=== PATIENT | female | born 1980 | race Caucasian/White ===

== ENCOUNTER 2020-04-03 05:10 | Emergency (ER) | payer OTHER ==
[~2020-04-03] VITALS: Ht 154.9 cm; Wt 52.2 kg
[2020-04-03 06:08] LABS: BACTERIA TRACE; BILIRUBIN NEGATIVE (NEGATIVE); BLOOD NEGATIVE (NEGATIVE); CLARITY SL CLOUDY (CLEAR); COLOR YELLOW (YELLOW); GLUCOSE NEGATIVE (NEGATIVE); KETONE NEGATIVE (NEGATIVE); LEUKO ESTERASE NEGATIVE (NEGATIVE); NITRITE NEGATIVE (NEGATIVE); RBC 0-2 rbc/hpf (0-2); UROBILINOGEN 0.2 E.U./dl (0.2-1.0)
[2020-04-03 06:09] LABS: MUCOUS 1+
[2020-04-03 06:21] LABS: BASO # 0.1 10*3/uL (0.0-0.1); BASO % 0.7 % (0.0-1.0); EOS # 0.1 10*3/uL (0.0-0.4); HEMATOCRIT 39.5 % (37.0-47.0); LYMPH % 28.1 % (27.0-41.0); MEAN CELL VOLUME 86.8 fl (81.0-99.0); MEAN CORPUSCULAR HGB 26.2 pg (27.0-31.0); MEAN CORPUSCULAR HGB CONC 30.1 g/dl (33.0-37.0); MONO # 0.5 10*3/uL (0.1-1.0); MONO % 6.7 % (3.0-9.0); NEUT # 4.3 10*3/uL (2.3-7.9); NEUT % 62.2 % (47.0-73.0); PLATELET COUNT AUTOMATED 386 10*3/uL (130-400); RED BLOOD COUNT 4.55 10*6/uL (4.10-5.10); RED CELL DISTRI WIDTH 18.3 % (0-14.5)
[2020-04-03 06:35] LABS: ACT PARTIAL THROMBO TIME 28.1 SECONDS (20.0-32.1)
[2020-04-03 06:47] LABS: ALBUMIN 3.5 gm/dl (3.1-4.5); ALKALINE PHOSPHATASE 122 U/L (45-117); BUN 10 mg/dl (7-24); CHLORIDE 110 mmol/L (98-107); CREATININE 0.81 mg/dL (0.55-1.02); LIPASE 104 U/L (73-393); POTASSIUM 3.8 mmol/L (3.5-5.1); SGOT/AST 186 IU/L (3-35); SGPT/ALT 131 U/L (12-78); SODIUM 137 mmol/L (136-145); TOTAL PROTEIN 7.1 gm/dL (6.4-8.2)
== END 2020-04-03 08:57 | disposition home or self-care (01) ==
LOC: ED 05:10
PROVIDERS: Emergency Medicine Emergency Medical Services
DX: K50.90 Crohn's disease, unspecified, without complications (principal); Z88.5 Allergy status to narcotic agent; F17.200 Nicotine dependence, unspecified, uncomplicated; Z88.8 Allergy status to other drugs, medicaments and biological substances

== ENCOUNTER 2020-05-28 14:36 | Emergency (ER) | payer OTHER ==
[~2020-05-28] VITALS: Ht 154.9 cm; Wt 52.2 kg
[2020-05-28 15:47] LABS: BASO % 0.4 % (0.0-1.0); EOS # 0.1 10*3/uL (0.0-0.4); EOS % 0.9 % (1.0-4.0); HEMATOCRIT 38.9 % (37.0-47.0); LYMPH # 1.4 10*3/uL (1.3-4.4); LYMPH % 14.8 % (27.0-41.0); MEAN CELL VOLUME 88.6 fl (81.0-99.0); MEAN CORPUSCULAR HGB 27.3 pg (27.0-31.0); MEAN CORPUSCULAR HGB CONC 30.8 g/dl (33.0-37.0); MEAN PLATELET VOLUME 8.5 fl (9.6-12.3); MONO # 0.7 10*3/uL (0.1-1.0); MONO % 7.4 % (3.0-9.0); NEUT # 7.2 10*3/uL (2.3-7.9); NEUT % 76.2 % (47.0-73.0); PLATELET COUNT AUTOMATED 603 10*3/uL (130-400); RED BLOOD COUNT 4.39 10*6/uL (4.10-5.10); RED CELL DISTRI WIDTH 13.6 % (0-14.5); WHITE BLOOD COUNT 9.4 10*3/uL (4.8-10.8)
[2020-05-28 16:04] LABS: ALBUMIN 3.2 gm/dl (3.1-4.5); ALKALINE PHOSPHATASE 113 U/L (45-117); BUN 13 mg/dl (7-24); CHLORIDE 103 mmol/L (98-107); CREATININE 0.71 mg/dL (0.55-1.02); LIPASE 354 U/L (73-393); POTASSIUM 4.4 mmol/L (3.5-5.1); SGOT/AST 16 IU/L (3-35); SGPT/ALT 23 U/L (12-78); SODIUM 134 mmol/L (136-145); TOTAL PROTEIN 7.9 gm/dL (6.4-8.2)
[2020-05-28 18:14] LABS: BILIRUBIN NEGATIVE (NEGATIVE); BLOOD NEGATIVE (NEGATIVE); CLARITY CLEAR (CLEAR); COLOR YELLOW (YELLOW); GLUCOSE NEGATIVE (NEGATIVE); KETONE NEGATIVE (NEGATIVE); LEUKO ESTERASE NEGATIVE (NEGATIVE); NITRITE NEGATIVE (NEGATIVE); PH 6.5 (5.0-9.0); SPECIFIC GRAVITY 1.015 (1.005-1.030); UROBILINOGEN 0.2 E.U./dl (0.2-1.0)
[2020-05-28 18:18] LABS: WBC 0-2 wbc/hpf (0-5)
[2020-05-28] MEDS ORDERED: PERCOCET 5-3251 EACH PO (20:49)
[2020-05-28] MEDS ORDERED: ZOFRAN4 MG PO (20:49)
[2020-05-28] MEDS ORDERED: AUGMENTIN 875-875 MG PO (20:49)
[2020-05-28] MEDS ORDERED: PREDNISONE50 MG PO (20:51)
== END 2020-05-28 21:37 | disposition home or self-care (01) ==
LOC: ED 14:36
PROVIDERS: Physician Assistant
DX: R10.84 Generalized abdominal pain (principal); R50.9 Fever, unspecified; G43.909 Migraine, unspecified, not intractable, without status migrainosus; M81.0 Age-related osteoporosis without current pathological fracture; Z86.718 Personal history of other venous thrombosis and embolism; Z88.8 Allergy status to other drugs, medicaments and biological substances; Z88.6 Allergy status to analgesic agent

== ENCOUNTER 2020-06-13 15:54 | Observation (INO) | payer OTHER ==
[~2020-06-13] VITALS: Ht 154.9 cm; Wt 52.7 kg
[~2020-06-13 15:54] MED LIST: AUGMENTIN 875-875 MG PO; PERCOCET 5-3251 EACH PO; PREDNISONE50 MG PO; ZOFRAN4 MG PO
[2020-06-13 16:01] VITALS: BP 131/108
[2020-06-13 17:07] LABS: BASO % 0.8 % (0.0-1.0); EOS % 0.6 % (1.0-4.0); HEMATOCRIT 33.7 % (37.0-47.0); LYMPH # 1.3 10*3/uL (1.3-4.4); LYMPH % 26.7 % (27.0-41.0); MEAN CELL VOLUME 85.5 fl (81.0-99.0); MEAN CORPUSCULAR HGB 26.9 pg (27.0-31.0); MEAN CORPUSCULAR HGB CONC 31.5 g/dl (33.0-37.0); MEAN PLATELET VOLUME 8.9 fl (9.6-12.3); MONO # 0.6 10*3/uL (0.1-1.0); MONO % 11.5 % (3.0-9.0); NEUT # 2.9 10*3/uL (2.3-7.9); NEUT % 60.2 % (47.0-73.0); PLATELET COUNT AUTOMATED 338 10*3/uL (130-400); RED BLOOD COUNT 3.94 10*6/uL (4.10-5.10); RED CELL DISTRI WIDTH 13.3 % (0-14.5); WHITE BLOOD COUNT 4.9 10*3/uL (4.8-10.8)
[2020-06-13 17:21] LABS: ALBUMIN 2.8 gm/dl (3.1-4.5); ALKALINE PHOSPHATASE 86 U/L (45-117); BUN 6 mg/dl (7-24); CHLORIDE 107 mmol/L (98-107); CREATININE 0.75 mg/dL (0.55-1.02); LIPASE 137 U/L (73-393); SGOT/AST 8 IU/L (3-35); SGPT/ALT 13 U/L (12-78); SODIUM 139 mmol/L (136-145); TOTAL PROTEIN 6.7 gm/dL (6.4-8.2)
--- NOTE | 2020-06-13 17:47 | NUR ---
PT STATES SHE STILL HAS A LOT OF PAIN AND IS STILL NAUSEOUS. Boris VILLASEÑOR NOTIFIED
[2020-06-13 18:23] LABS: BILIRUBIN NEGATIVE; BLOOD NEGATIVE (NEGATIVE); CLARITY CLEAR (CLEAR); COLOR YELLOW (YELLOW); GLUCOSE NEGATIVE; KETONE NEGATIVE; LEUKO ESTERASE NEGATIVE (NEGATIVE); NITRITE NEGATIVE (NEGATIVE); PH 5.5 (4.5-8.0); SPECIFIC GRAVITY 1.005 (1.001-1.030); UROBILINOGEN 0.2 E.U./dl (0.0-1.0)
[2020-06-13 18:30] LABS: URINE AMPHETAMINES < 1000 (1000ng/ml); URINE BARBITURATES < 200 (200ng/ml); URINE BENZODIAZEPINES < 200 (200ng/ml); URINE CANNABINOIDS (THC) < 50 (50ng/ml); URINE COCAINE < 300 (300ng/ml); URINE METHADONE < 300 (300ng/ml); URINE OPIATES > 300 (300ng/ml)
[2020-06-13 18:31] LABS: BACTERIA 2+; RBC 0-2 rbc/hpf (0-2); URINE PHENCYCLIDINE < 25 (25ng/ml); WBC 0-2 wbc/hpf (0-5)
--- NOTE | 2020-06-13 20:00 | NUR ---
PT GIVEN SMALL CUP OF ICE CHIPS.
--- NOTE | 2020-06-13 20:39 | NUR ---
Boris VILLASEÑOR IN TO SEE PT AT THIS TIME.
[2020-06-13 22:05] VITALS: BP 101/69
[2020-06-13 22:06] VITALS: BP 94/70
--- NOTE | 2020-06-13 22:13 | NUR ---
PT RESTING IN BED. CALL LIGHT WITHIN REACH
--- NOTE | 2020-06-13 22:45 | NUR ---
PT STATES HER USUAL BP IS AROUND 90/60. STATES SHE ALWAYS RUNS LOW
[2020-06-13 22:46] VITALS: BP 105/50
[2020-06-13 22:57] VITALS: BP 107/62
--- NOTE | 2020-06-13 22:57 | NUR ---
Time: 2256 A 40 year old FEMALE admitted to 4E under services of SAMEERA STEPHEN DO. Pt. arrived via stretcher from ER. Chief complaint: ABD PAIN. [place] [facility]
[2020-06-13] MEDS ORDERED: AZASAN100 MG PO (23:04)
[2020-06-13] MEDS ORDERED: DICYCLOMINE HCL20 MG PO (23:06)
[2020-06-14] MEDS ORDERED: STELARA90 MG/1 ML SQ (00:13)
[2020-06-14] MEDS ORDERED: CYMBALTA60 MG PO (00:14)
[2020-06-14] MEDS ORDERED: IMITREX100 MG PO (00:14)
[2020-06-14] MEDS ORDERED: LOPERAMIDE HCL2 MG PO (00:17)
--- NOTE | 2020-06-14 00:17 | NUR ---
MED REC COMPLETED WITH PATIENT ALERT AND ORIENTED
--- NOTE | 2020-06-14 01:05 | NUR ---
MEDICATED WITH PRN NORCO FOR C/O ABD PAIN RATED 8/10 ON A 0/10 PAIN SCALE. WILL MONITOR
--- NOTE | 2020-06-14 01:58 | NUR ---
MEDICATION NOT EFFECTIVE PER PATIENT. DR SEWELL MADE AWARE. PATIENT STATES THAT SHE CAN TAKE MORPHINE WITH BENEDRYL. STATES IT JUST MAKES HER ITCHY. DR SEWELL MADE AWARE. ORDERS TAKEN FOR 1MG MORPHINE IV NOW WITH 25 MG OF BENEDRYL. ALSO ORDERS TAKEN FOR 1 MG MORPHINE Q6H WITH 12.5 MG OF BENEDRYL
--- NOTE | 2020-06-14 02:32 | NUR ---
MEDICATED WITH PRN MORPHINE AND 25 MG OF BENEDRYL FOR C/O PAIN IN ABD RATED 8/10 ON A 0/10 PAIN SCALE. PATIENT STATES "I WAS ADMITTED FOR PAIN CONTROL. I AM ONLY GETTING A BABY DOSE OF MORPHINE." PATIENT WAS ENCOURAGED TO LET THIS RN KNOW IF THE MEDICATION DOES NOT HELP THE PAIN. SHE PLAYS ON HER LAPTOP, SHE STATES "OK". BED IN LOWEST POSITION. CALL LIGHT IN REACH
--- NOTE | 2020-06-14 03:04 | NUR ---
DR SEWELL AWARE OF PATIENT STATING THAT THE MORPHINE IS NOT HELPING. ORDER FOR 30 MG OF TORADOL NOW.
--- NOTE | 2020-06-14 03:10 | NUR ---
IN TO SEE PATIENT AND ADMINISTER TORADOL PER ORDER FOR ABDOMINAL PAIN. PATIENT STATES, "I JUST WANT TO GO HOME SINCE YOU GUYS ARE NOT CONTROLLING MY PAIN". PATIENT IS REFUSING TORADOL AT THIS TIME. WILL NOTIFY PHYSICIAN.
--- NOTE | 2020-06-14 03:17 | NUR ---
NORAH DEACCESSED AT THIS TIME D/T PT LEAVING AMA.
--- NOTE | 2020-06-14 03:21 | NUR ---
DR SEWELL AWARE OF PATIENT GOING AMA.
--- NOTE | 2020-06-14 03:28 | NUR ---
THREADER OPERATOR MADE AWARE OF PATIENT GOING AMA
--- NOTE | 2020-06-14 03:31 | NUR ---
PATIENT WAS EDUCATED ON THE IMPORTANCE OF STAYING FOR TREATMENT. VERBALIZED UNDERSTANDING. CHOSE TO LEAVE AMA. PATIENT AMBULATED OUT WITH ALL BELONGINGS WITH HER.
== END 2020-06-14 03:33 | disposition left against medical advice (07) ==
LOC: ED 15:54 → EDHOLD 21:33 → 4E 22:43
PROVIDERS: Nurse Practitioner Family; ADMIT Family Medicine; ATTEND Family Medicine
DX: R10.31 Right lower quadrant pain (principal); R10.13 Epigastric pain

== ENCOUNTER 2020-06-25 03:29 | Emergency (ER) | payer OTHER ==
[~2020-06-25] VITALS: Ht 154.9 cm; Wt 52.2 kg
[~2020-06-25 03:29] MED LIST changes: +AZASAN100 MG PO; +CYMBALTA60 MG PO; +DICYCLOMINE HCL20 MG PO; +IMITREX100 MG PO; +LOPERAMIDE HCL2 MG PO; +STELARA90 MG/1 ML SQ
[2020-06-25 04:21] LABS: URINE AMPHETAMINES < 1000 (1000ng/ml); URINE BARBITURATES < 200 (200ng/ml); URINE BENZODIAZEPINES < 200 (200ng/ml); URINE CANNABINOIDS (THC) < 50 (50ng/ml); URINE COCAINE < 300 (300ng/ml); URINE METHADONE < 300 (300ng/ml); URINE OPIATES > 300 (300ng/ml)
[2020-06-25 04:22] LABS: URINE PHENCYCLIDINE < 25 (25ng/ml)
[2020-06-25 04:31] LABS: BILIRUBIN NEGATIVE; BLOOD NEGATIVE (NEGATIVE); CLARITY CLEAR (CLEAR); COLOR YELLOW (YELLOW); GLUCOSE NEGATIVE; KETONE NEGATIVE; LEUKO ESTERASE NEGATIVE (NEGATIVE); NITRITE NEGATIVE (NEGATIVE); PH 5.5 (4.5-8.0); SPECIFIC GRAVITY > 1.030 (1.001-1.030)
[2020-06-25 04:34] LABS: WBC 0-2 wbc/hpf (0-5)
[2020-06-25 05:22] LABS: ALBUMIN 2.4 gm/dl (3.1-4.5); ALKALINE PHOSPHATASE 67 U/L (45-117); BUN 7 mg/dl (7-24); CHLORIDE 115 mmol/L (98-107); CREATININE 0.61 mg/dL (0.55-1.02); LIPASE 171 U/L (73-393); SGOT/AST 10 IU/L (3-35); SGPT/ALT 14 U/L (12-78); SODIUM 140 mmol/L (136-145)
== END 2020-06-25 05:33 | disposition left against medical advice (07) ==
LOC: ED 03:29
PROVIDERS: Emergency Medicine
DX: K50.90 Crohn's disease, unspecified, without complications (principal); Z88.8 Allergy status to other drugs, medicaments and biological substances; Z79.899 Other long term (current) drug therapy

== ENCOUNTER 2020-08-06 19:38 | Emergency (ER) | payer OTHER ==
[~2020-08-06] VITALS: Ht 154.9 cm; Wt 52.2 kg
[2020-08-06 20:27] LABS: BILIRUBIN Negative (Negative); BLOOD Negative (Negative); COLOR Yellow (Yellow); GLUCOSE Negative (Negative); KETONE Negative (Negative); LEUKO ESTERASE Trace (Negative); NITRITE Negative (Negative); PH 7.5 (4.5-8.0)
[2020-08-06 20:43] LABS: CLARITY Cloudy (Clear)
[2020-08-06 20:45] LABS: BACTERIA 1+; CALCIUM OXALATE CRYSTALS TNTC; RBC 0-2 rbc/hpf (0-2)
[2020-08-06 21:22] LABS: BASO % 0.2 % (0.0-1.0); EOS # 0.2 10*3/uL (0.0-0.4); EOS % 2.2 % (1.0-4.0); HEMATOCRIT 35.9 % (37.0-47.0); LYMPH # 3.2 10*3/uL (1.3-4.4); LYMPH % 29.5 % (27.0-41.0); MEAN CELL VOLUME 85.9 fl (81.0-99.0); MEAN CORPUSCULAR HGB 26.6 pg (27.0-31.0); MEAN CORPUSCULAR HGB CONC 30.9 g/dl (33.0-37.0); MEAN PLATELET VOLUME 8.7 fl (9.6-12.3); MONO # 0.8 10*3/uL (0.1-1.0); MONO % 7.8 % (3.0-9.0); NEUT # 6.4 10*3/uL (2.3-7.9); NEUT % 59.9 % (47.0-73.0); PLATELET COUNT AUTOMATED 516 10*3/uL (130-400); RED BLOOD COUNT 4.18 10*6/uL (4.10-5.10); RED CELL DISTRI WIDTH 14.4 % (0-14.5); WHITE BLOOD COUNT 10.7 10*3/uL (4.8-10.8)
[2020-08-06 21:34] LABS: ACT PARTIAL THROMBO TIME 24.5 SECONDS (20.0-32.1); INTERNATIONAL NORM RATIO 0.9 (2.0-3.5)
[2020-08-06 21:38] LABS: ALKALINE PHOSPHATASE 124 U/L (45-117); BUN 10 mg/dl (7-24); CHLORIDE 105 mmol/L (98-107); CREATININE 0.65 mg/dL (0.55-1.02); LIPASE 255 U/L (73-393); SGOT/AST 15 IU/L (3-35); SGPT/ALT 29 U/L (12-78); SODIUM 138 mmol/L (136-145); TOTAL PROTEIN 6.9 gm/dL (6.4-8.2)
[2020-08-10 21:06] LABS: RESULT 1 Candida albicans (.)
[2020-08-17 17:09] LABS: AMPHOTERICIN B MIC 0.5 ug/mL (.); FLUCYTOSINE MIC 0.12 ug/mL (.); ITRACONAZOLE MIC 0.06 ug/mL (.); KETOCONAZOLE MIC 0.5 ug/mL (.); YEAST ID Candida albicans (.)
== END 2020-08-07 00:35 | disposition home or self-care (01) ==
LOC: ED 19:38
PROVIDERS: Emergency Medicine Emergency Medical Services
DX: K50.90 Crohn's disease, unspecified, without complications (principal); G43.909 Migraine, unspecified, not intractable, without status migrainosus; Z88.8 Allergy status to other drugs, medicaments and biological substances; Z79.899 Other long term (current) drug therapy; Z87.891 Personal history of nicotine dependence

== ENCOUNTER 2020-08-11 20:49 | Inpatient (IN) | payer OTHER ==
[~2020-08-11] VITALS: Ht 154.9 cm; Wt 54.7 kg
[2020-08-11 21:34] VITALS: BP 104/76
[2020-08-11 22:49] LABS: EOS # 0.1 10*3/uL (0.0-0.4); EOS % 1.7 % (1.0-4.0); HEMATOCRIT 34.2 % (37.0-47.0); LYMPH # 2.3 10*3/uL (1.3-4.4); LYMPH % 27.9 % (27.0-41.0); MEAN CELL VOLUME 85.9 fl (81.0-99.0); MEAN CORPUSCULAR HGB 26.1 pg (27.0-31.0); MEAN CORPUSCULAR HGB CONC 30.4 g/dl (33.0-37.0); MEAN PLATELET VOLUME 8.9 fl (9.6-12.3); MONO # 0.9 10*3/uL (0.1-1.0); MONO % 10.5 % (3.0-9.0); NEUT % 59.4 % (47.0-73.0); PLATELET COUNT AUTOMATED 500 10*3/uL (130-400); RED BLOOD COUNT 3.98 10*6/uL (4.10-5.10); RED CELL DISTRI WIDTH 14.6 % (0-14.5); WHITE BLOOD COUNT 8.4 10*3/uL (4.8-10.8)
[2020-08-11 22:59] LABS: INTERNATIONAL NORM RATIO 0.9 (2.0-3.5)
[2020-08-11 23:06] LABS: ALKALINE PHOSPHATASE 95 U/L (45-117); BUN 8 mg/dl (7-24); CHLORIDE 106 mmol/L (98-107); CREATININE 0.64 mg/dL (0.55-1.02); LIPASE 219 U/L (73-393); POTASSIUM 3.9 mmol/L (3.5-5.1); SGOT/AST 10 IU/L (3-35); SGPT/ALT 27 U/L (12-78); SODIUM 139 mmol/L (136-145); TOTAL PROTEIN 6.6 gm/dL (6.4-8.2)
[2020-08-11 23:08] LABS: BILIRUBIN Negative (Negative); BLOOD Negative (Negative); CLARITY Turbid (Clear); COLOR Yellow (Yellow); GLUCOSE Negative (Negative); KETONE Negative (Negative); LEUKO ESTERASE Negative (Negative); NITRITE Negative (Negative); SPECIFIC GRAVITY 1.015 (1.001-1.030); UROBILINOGEN 0.2 E.U./dl (0.0-1.0)
[2020-08-11 23:09] LABS: TROPONIN I < 0.015 ng/ml (<0.045)
[2020-08-11 23:21] LABS: BACTERIA TRACE; WBC 0-2 wbc/hpf (0-5)
[2020-08-12 01:15] VITALS: BP 88/64
[2020-08-12 04:00] VITALS: BP 113/82
[2020-08-12 06:24] LABS: BASO % 0.2 % (0.0-1.0); EOS # 0.2 10*3/uL (0.0-0.4); EOS % 1.6 % (1.0-4.0); HEMATOCRIT 32.1 % (37.0-47.0); LYMPH # 1.9 10*3/uL (1.3-4.4); MEAN CELL VOLUME 88.4 fl (81.0-99.0); MEAN CORPUSCULAR HGB 25.9 pg (27.0-31.0); MEAN CORPUSCULAR HGB CONC 29.3 g/dl (33.0-37.0); MEAN PLATELET VOLUME 9.9 fl (9.6-12.3); MONO # 0.8 10*3/uL (0.1-1.0); MONO % 7.5 % (3.0-9.0); NEUT # 7.6 10*3/uL (2.3-7.9); NEUT % 72.3 % (47.0-73.0); PLATELET COUNT AUTOMATED 359 10*3/uL (130-400); RED BLOOD COUNT 3.63 10*6/uL (4.10-5.10); RED CELL DISTRI WIDTH 14.6 % (0-14.5); WHITE BLOOD COUNT 10.6 10*3/uL (4.8-10.8)
[2020-08-12 06:33] LABS: ALBUMIN 2.6 gm/dl (3.1-4.5); ALKALINE PHOSPHATASE 81 U/L (45-117); BUN 6 mg/dl (7-24); CHLORIDE 108 mmol/L (98-107); CHOLESTEROL 168 mg/dL (<200); CREATININE 0.64 mg/dL (0.55-1.02); FREE T4 1.05 ng/dl (0.76-1.46); HDL CHOLESTEROL 61 mg/dl (40-60); LDL CHOLESTEROL 67 mg/dL (9-159); POTASSIUM 3.8 mmol/L (3.5-5.1); SGOT/AST 11 IU/L (3-35); SGPT/ALT 23 U/L (12-78); SODIUM 142 mmol/L (136-145); TOTAL PROTEIN 5.9 gm/dL (6.4-8.2); TRIGLYCERIDES 200 mg/dl (<150); VLDL CHOLESTEROL 40 mg/dL (6-40)
[2020-08-12 06:34] LABS: ACT PARTIAL THROMBO TIME 21.9 SECONDS (20.0-32.1); INTERNATIONAL NORM RATIO 0.9 (2.0-3.5)
[2020-08-12 07:51] LABS: VITAMIN D, 25-HYDROXY 31.5 ng/mL (30-100)
[2020-08-12 08:00] VITALS: BP 92/68
[2020-08-12 12:00] VITALS: BP 100/62
[2020-08-12 16:00] VITALS: BP 125/105
[2020-08-12 20:00] VITALS: BP 102/64
[2020-08-13] VITALS (8 sets, daily range): BP systolic 101–146; BP diastolic 62–84
[2020-08-13 05:56] LABS: HEMATOCRIT 30.6 % (37.0-47.0); LYMPH # 0.4 10*3/uL (1.3-4.4); LYMPH % 13.4 % (27.0-41.0); MEAN CELL VOLUME 85.7 fl (81.0-99.0); MEAN CORPUSCULAR HGB 26.1 pg (27.0-31.0); MEAN CORPUSCULAR HGB CONC 30.4 g/dl (33.0-37.0); MEAN PLATELET VOLUME 8.9 fl (9.6-12.3); MONO # 0.2 10*3/uL (0.1-1.0); NEUT # 2.6 10*3/uL (2.3-7.9); NEUT % 79.3 % (47.0-73.0); PLATELET COUNT AUTOMATED 401 10*3/uL (130-400); RED BLOOD COUNT 3.57 10*6/uL (4.10-5.10); RED CELL DISTRI WIDTH 14.2 % (0-14.5); WHITE BLOOD COUNT 3.3 10*3/uL (4.8-10.8)
[2020-08-13 06:14] LABS: ALBUMIN 3.1 gm/dl (3.1-4.5); ALKALINE PHOSPHATASE 170 U/L (45-117); BUN 6 mg/dl (7-24); CHLORIDE 103 mmol/L (98-107); CREATININE 0.66 mg/dL (0.55-1.02); POTASSIUM 4.3 mmol/L (3.5-5.1); SGOT/AST 57 IU/L (3-35); SGPT/ALT 136 U/L (12-78); SODIUM 137 mmol/L (136-145); TOTAL PROTEIN 7.1 gm/dL (6.4-8.2)
[2020-08-14] VITALS: BP 108/90
[2020-08-14 07:36] LABS: BASO % 0.1 % (0.0-1.0); EOS # 0.1 10*3/uL (0.0-0.4); EOS % 0.9 % (1.0-4.0); LYMPH # 1.8 10*3/uL (1.3-4.4); LYMPH % 15.4 % (27.0-41.0); MEAN CELL VOLUME 84.2 fl (81.0-99.0); MEAN CORPUSCULAR HGB 25.8 pg (27.0-31.0); MEAN CORPUSCULAR HGB CONC 30.6 g/dl (33.0-37.0); MEAN PLATELET VOLUME 8.8 fl (9.6-12.3); MONO # 1.3 10*3/uL (0.1-1.0); MONO % 11.7 % (3.0-9.0); NEUT # 8.1 10*3/uL (2.3-7.9); NEUT % 71.5 % (47.0-73.0); PLATELET COUNT AUTOMATED 425 10*3/uL (130-400); RED BLOOD COUNT 3.68 10*6/uL (4.10-5.10); RED CELL DISTRI WIDTH 14.4 % (0-14.5); WHITE BLOOD COUNT 11.3 10*3/uL (4.8-10.8)
[2020-08-14 07:38] LABS: ALBUMIN 3.2 gm/dl (3.1-4.5); ALKALINE PHOSPHATASE 141 U/L (45-117); BUN 10 mg/dl (7-24); CHLORIDE 104 mmol/L (98-107); CREATININE 0.82 mg/dL (0.55-1.02); POTASSIUM 4.5 mmol/L (3.5-5.1); SGOT/AST 26 IU/L (3-35); SGPT/ALT 92 U/L (12-78); SODIUM 139 mmol/L (136-145)
[2020-08-14 08:00] VITALS: BP 102/66
[2020-08-14 12:00] VITALS: BP 119/80
[2020-08-14 16:00] VITALS: BP 121/82
[2020-08-14 20:00] VITALS: BP 113/89
[2020-08-15] VITALS: BP 120/84
[2020-08-15 06:45] LABS: BASO % 0.2 % (0.0-1.0); EOS # 0.2 10*3/uL (0.0-0.4); EOS % 2.1 % (1.0-4.0); HEMATOCRIT 31.9 % (37.0-47.0); LYMPH # 2.3 10*3/uL (1.3-4.4); LYMPH % 28.4 % (27.0-41.0); MEAN CELL VOLUME 84.6 fl (81.0-99.0); MEAN CORPUSCULAR HGB 26.3 pg (27.0-31.0); MONO % 11.9 % (3.0-9.0); NEUT # 4.6 10*3/uL (2.3-7.9); NEUT % 56.8 % (47.0-73.0); PLATELET COUNT AUTOMATED 425 10*3/uL (130-400); RED BLOOD COUNT 3.77 10*6/uL (4.10-5.10); RED CELL DISTRI WIDTH 14.3 % (0-14.5); WHITE BLOOD COUNT 8.1 10*3/uL (4.8-10.8)
[2020-08-15 08:00] VITALS: BP 103/86
[2020-08-15 10:30] LABS: ALBUMIN 3.1 gm/dl (3.1-4.5); ALKALINE PHOSPHATASE 132 U/L (45-117); BUN 6 mg/dl (7-24); CHLORIDE 101 mmol/L (98-107); CREATININE 0.75 mg/dL (0.55-1.02); POTASSIUM 3.8 mmol/L (3.5-5.1); SGOT/AST 20 IU/L (3-35); SGPT/ALT 74 U/L (12-78); SODIUM 138 mmol/L (136-145); TOTAL PROTEIN 6.9 gm/dL (6.4-8.2)
[2020-08-15 12:00] VITALS: BP 109/88
[2020-08-15 16:00] VITALS: BP 135/86
[2020-08-15 20:00] VITALS: BP 133/90
[2020-08-16] VITALS (12 sets, daily range): BP systolic 102–132; BP diastolic 76–90
[2020-08-16 06:30] LABS: BASO % 0.2 % (0.0-1.0); EOS # 0.2 10*3/uL (0.0-0.4); EOS % 2.4 % (1.0-4.0); HEMATOCRIT 37.6 % (37.0-47.0); LYMPH # 2.4 10*3/uL (1.3-4.4); LYMPH % 27.7 % (27.0-41.0); MEAN CELL VOLUME 87.6 fl (81.0-99.0); MEAN CORPUSCULAR HGB 25.6 pg (27.0-31.0); MEAN CORPUSCULAR HGB CONC 29.3 g/dl (33.0-37.0); MEAN PLATELET VOLUME 8.8 fl (9.6-12.3); MONO % 11.2 % (3.0-9.0); NEUT # 4.9 10*3/uL (2.3-7.9); PLATELET COUNT AUTOMATED 496 10*3/uL (130-400); RED BLOOD COUNT 4.29 10*6/uL (4.10-5.10); RED CELL DISTRI WIDTH 14.2 % (0-14.5); WHITE BLOOD COUNT 8.5 10*3/uL (4.8-10.8)
[2020-08-16 06:52] LABS: ALBUMIN 3.4 gm/dl (3.1-4.5); ALKALINE PHOSPHATASE 141 U/L (45-117); BUN 7 mg/dl (7-24); CHLORIDE 104 mmol/L (98-107); CREATININE 0.69 mg/dL (0.55-1.02); POTASSIUM 4.1 mmol/L (3.5-5.1); SGOT/AST 26 IU/L (3-35); SGPT/ALT 71 U/L (12-78); SODIUM 135 mmol/L (136-145); TOTAL PROTEIN 7.5 gm/dL (6.4-8.2)
[2020-08-16] MEDS ORDERED: FLUCONAZOLE IV (13:04)
[2020-08-17] VITALS (9 sets, daily range): BP systolic 106–129; BP diastolic 63–87
[2020-08-18] VITALS: BP 93/72
[2020-08-18 02:20] VITALS: BP 119/78
[2020-08-18 06:07] LABS: ALBUMIN 2.9 gm/dl (3.1-4.5); ALKALINE PHOSPHATASE 142 U/L (45-117); BASO % 0.3 % (0.0-1.0); BILIRUBIN, DIRECT < 0.1 mg/dL (0.0-0.2); BUN 7 mg/dl (7-24); CHLORIDE 106 mmol/L (98-107); CREATININE 0.61 mg/dL (0.55-1.02); EOS # 0.2 10*3/uL (0.0-0.4); HEMATOCRIT 36.8 % (37.0-47.0); LYMPH # 2.3 10*3/uL (1.3-4.4); MEAN CELL VOLUME 89.5 fl (81.0-99.0); MEAN CORPUSCULAR HGB 25.8 pg (27.0-31.0); MEAN CORPUSCULAR HGB CONC 28.8 g/dl (33.0-37.0); MEAN PLATELET VOLUME 9.4 fl (9.6-12.3); MONO # 0.8 10*3/uL (0.1-1.0); MONO % 9.7 % (3.0-9.0); NEUT # 5.2 10*3/uL (2.3-7.9); NEUT % 60.8 % (47.0-73.0); PLATELET COUNT AUTOMATED 444 10*3/uL (130-400); POTASSIUM 4.2 mmol/L (3.5-5.1); RED BLOOD COUNT 4.11 10*6/uL (4.10-5.10); RED CELL DISTRI WIDTH 14.4 % (0-14.5); SGOT/AST 51 IU/L (3-35); SGPT/ALT 90 U/L (12-78); SODIUM 136 mmol/L (136-145); TOTAL PROTEIN 6.9 gm/dL (6.4-8.2); WHITE BLOOD COUNT 8.6 10*3/uL (4.8-10.8)
[2020-08-18 08:00] VITALS: BP 103/83
[2020-08-18 12:00] VITALS: BP 106/73
[2020-08-18 16:00] VITALS: BP 116/85
[2020-08-18 20:00] VITALS: BP 111/90
[2020-08-19] VITALS: BP 103/69
[2020-08-19 06:41] LABS: ALBUMIN 2.5 gm/dl (3.1-4.5); ALKALINE PHOSPHATASE 100 U/L (45-117); BILIRUBIN, DIRECT < 0.1 mg/dL (0.0-0.2); SGOT/AST 22 IU/L (3-35); SGPT/ALT 54 U/L (12-78); TOTAL PROTEIN 5.7 gm/dL (6.4-8.2)
[2020-08-19 06:44] LABS: HEMATOCRIT 28.8 % (37.0-47.0); MEAN CORPUSCULAR HGB CONC 30.6 g/dl (33.0-37.0); PLATELET COUNT AUTOMATED 361 10*3/uL (130-400); RED BLOOD COUNT 3.39 10*6/uL (4.10-5.10); RED CELL DISTRI WIDTH 14.1 % (0-14.5); WHITE BLOOD COUNT 6.5 10*3/uL (4.8-10.8)
[2020-08-19 07:53] LABS: OVALOCYTES FEW; PLATELET SUFFICIENCY NORMAL (NORMAL); TOTAL CELLS COUNTED 100 #CELLS
[2020-08-19 08:00] VITALS: BP 124/76
[2020-08-19 11:09] LABS: RESULT 1 Candida albicans (.)
[2020-08-19 11:09] LABS: RESULT 1 Candida albicans (.)
[2020-08-19 12:00] VITALS: BP 115/81
[2020-08-19 16:00] VITALS: BP 112/80; BP 116/78
[2020-08-19 20:00] VITALS: BP 118/76
[2020-08-20] VITALS: BP 121/77
[2020-08-20 06:22] LABS: BASO % 0.4 % (0.0-1.0); EOS # 0.2 10*3/uL (0.0-0.4); EOS % 3.2 % (1.0-4.0); HEMATOCRIT 28.2 % (37.0-47.0); LYMPH % 18.3 % (27.0-41.0); MEAN CELL VOLUME 84.7 fl (81.0-99.0); MEAN CORPUSCULAR HGB 26.1 pg (27.0-31.0); MEAN CORPUSCULAR HGB CONC 30.9 g/dl (33.0-37.0); MEAN PLATELET VOLUME 9.5 fl (9.6-12.3); MONO # 0.6 10*3/uL (0.1-1.0); MONO % 9.9 % (3.0-9.0); NEUT # 3.8 10*3/uL (2.3-7.9); PLATELET COUNT AUTOMATED 358 10*3/uL (130-400); RED BLOOD COUNT 3.33 10*6/uL (4.10-5.10); RED CELL DISTRI WIDTH 13.9 % (0-14.5); WHITE BLOOD COUNT 5.7 10*3/uL (4.8-10.8)
[2020-08-20 06:37] LABS: ALBUMIN 2.4 gm/dl (3.1-4.5); ALKALINE PHOSPHATASE 96 U/L (45-117); BUN 4 mg/dl (7-24); CHLORIDE 111 mmol/L (98-107); CREATININE 0.63 mg/dL (0.55-1.02); POTASSIUM 3.9 mmol/L (3.5-5.1); SGOT/AST 29 IU/L (3-35); SGPT/ALT 43 U/L (12-78); SODIUM 144 mmol/L (136-145); TOTAL PROTEIN 5.6 gm/dL (6.4-8.2)
[2020-08-20 08:00] VITALS: BP 120/78
[2020-08-20 12:00] VITALS: BP 128/84
[2020-08-20] MEDS ORDERED: FLUCONAZOLE100 MG PO (13:30)
[2020-08-20] MEDS ORDERED: PERCOCET 7.5-31 EACH PO (13:31)
[2020-08-20 15:06] LABS: RESULT 1 Candida albicans (.)
[2020-08-22 14:06] LABS: AMPHOTERICIN B MIC 1.0 ug/mL (.); FLUCYTOSINE MIC 0.12 ug/mL (.); ITRACONAZOLE MIC 0.12 ug/mL (.); KETOCONAZOLE MIC 0.016 ug/mL (.); YEAST ID Candida albicans (.)
[2020-08-26 20:12] LABS: AMPHOTERICIN B MIC 0.5 ug/mL (.); FLUCYTOSINE MIC 0.5 ug/mL (.); ITRACONAZOLE MIC 0.25 ug/mL (.); KETOCONAZOLE MIC 0.12 ug/mL (.); YEAST ID Candida albicans (.)
== END 2020-08-20 15:52 | disposition home or self-care (01) | DRG 721 ==
LOC: ED 20:49 → 4E 23:42 → EDHOLD 23:42 → 4E 08-12 01:31
PROVIDERS: Internal Medicine; Internal Medicine Gastroenterology; Physician Assistant; Registered Nurse; Student in an Organized Health Care Education/Training Program; Surgery; ADMIT Internal Medicine; ATTEND Internal Medicine
PROC: 0JPT0WZ Removal of Totally Implantable Vascular Access Device from Trunk Subcutaneous Tissue and Fascia, Open Approach (ICD-10-PCS; 2020-08-13)
PROC: 02PY33Z Removal of Infusion Device from Great Vessel, Percutaneous Approach (ICD-10-PCS; 2020-08-13)
PROC: B24BZZ4 Ultrasonography of Heart with Aorta, Transesophageal (ICD-10-PCS; 2020-08-13)
PROC: 0DJD8ZZ Inspection of Lower Intestinal Tract, Via Natural or Artificial Opening Endoscopic (ICD-10-PCS; principal; 2020-08-16)
PROC: 0DB98ZX Excision of Duodenum, Via Natural or Artificial Opening Endoscopic, Diagnostic (ICD-10-PCS; 2020-08-16)
PROC: 05HY33Z Insertion of Infusion Device into Upper Vein, Percutaneous Approach (ICD-10-PCS; 2020-08-16)
PROC: B51MZZA Fluoroscopy of Right Upper Extremity Veins, Guidance (ICD-10-PCS; 2020-08-16)
PROC: 0F798DZ Dilation of Common Bile Duct with Intraluminal Device, Via Natural or Artificial Opening Endoscopic (ICD-10-PCS; 2020-08-17)
DX: T80.218A Other infection due to central venous catheter, initial encounter (principal); K50.90 Crohn's disease, unspecified, without complications; M81.0 Age-related osteoporosis without current pathological fracture; E43 Unspecified severe protein-calorie malnutrition; E83.41 Hypermagnesemia; B37.7 Candidal sepsis; D47.3 Essential (hemorrhagic) thrombocythemia; K29.70 Gastritis, unspecified, without bleeding; K29.80 Duodenitis without bleeding; K83.1 Obstruction of bile duct; K56.600 Partial intestinal obstruction, unspecified as to cause; D64.9 Anemia, unspecified; K91.2 Postsurgical malabsorption, not elsewhere classified; E53.8 Deficiency of other specified B group vitamins; G43.909 Migraine, unspecified, not intractable, without status migrainosus; Y83.8 Other surgical procedures as the cause of abnormal reaction of the patient, or of later complication, without mention of misadventure at the time of the procedure; Y92.89 Other specified places as the place of occurrence of the external cause; Z88.5 Allergy status to narcotic agent; Z88.8 Allergy status to other drugs, medicaments and biological substances; Z90.49 Acquired absence of other specified parts of digestive tract; Z87.891 Personal history of nicotine dependence; Z86.711 Personal history of pulmonary embolism; Z86.718 Personal history of other venous thrombosis and embolism; Z83.3 Family history of diabetes mellitus; Z79.899 Other long term (current) drug therapy; Z91.19 Patient's noncompliance with other medical treatment and regimen; Z68.22 Body mass index [BMI] 22.0-22.9, adult

== ENCOUNTER 2020-08-21 06:05 | Emergency (ER) | payer OTHER ==
[~2020-08-21] VITALS: Ht 154.9 cm; Wt 52.2 kg
[~2020-08-21 06:05] MED LIST changes: +FLUCONAZOLE IV; +FLUCONAZOLE100 MG PO; +PERCOCET 7.5-31 EACH PO
[2020-08-21 06:54] LABS: BASO % 0.5 % (0.0-1.0); EOS # 0.2 10*3/uL (0.0-0.4); EOS % 2.5 % (1.0-4.0); HEMATOCRIT 34.2 % (37.0-47.0); LYMPH # 1.8 10*3/uL (1.3-4.4); LYMPH % 23.6 % (27.0-41.0); MEAN CELL VOLUME 85.3 fl (81.0-99.0); MEAN CORPUSCULAR HGB 25.7 pg (27.0-31.0); MEAN CORPUSCULAR HGB CONC 30.1 g/dl (33.0-37.0); MEAN PLATELET VOLUME 8.8 fl (9.6-12.3); MONO # 0.6 10*3/uL (0.1-1.0); MONO % 7.5 % (3.0-9.0); NEUT # 5.1 10*3/uL (2.3-7.9); NEUT % 65.6 % (47.0-73.0); PLATELET COUNT AUTOMATED 420 10*3/uL (130-400); RED BLOOD COUNT 4.01 10*6/uL (4.10-5.10); RED CELL DISTRI WIDTH 13.8 % (0-14.5); WHITE BLOOD COUNT 7.7 10*3/uL (4.8-10.8)
[2020-08-21 06:56] LABS: BILIRUBIN Negative (Negative); BLOOD Negative (Negative); CLARITY Clear (Clear); COLOR Yellow (Yellow); GLUCOSE Negative (Negative); KETONE Negative (Negative); LEUKO ESTERASE Negative (Negative); NITRITE Negative (Negative); SPECIFIC GRAVITY 1.025 (1.001-1.030); UROBILINOGEN 0.2 E.U./dl (0.0-1.0)
[2020-08-21 07:10] LABS: ALKALINE PHOSPHATASE 124 U/L (45-117); BUN 3 mg/dl (7-24); CHLORIDE 108 mmol/L (98-107); LIPASE 151 U/L (73-393); POTASSIUM 3.8 mmol/L (3.5-5.1); SGOT/AST 26 IU/L (3-35); SGPT/ALT 50 U/L (12-78); SODIUM 139 mmol/L (136-145); TOTAL PROTEIN 6.8 gm/dL (6.4-8.2)
[2020-08-21 07:14] LABS: RBC 0-2 rbc/hpf (0-2)
== END 2020-08-21 10:13 | disposition home or self-care (01) ==
LOC: ED 06:05
PROVIDERS: Emergency Medicine
DX: R10.13 Epigastric pain (principal); Z79.899 Other long term (current) drug therapy

== ENCOUNTER 2020-08-26 10:34 | Observation (INO) | payer OTHER ==
[~2020-08-26] VITALS: Ht 155 cm; Wt 52.0 kg
[2020-08-26 11:04] VITALS: BP 103/81
[2020-08-26 11:21] LABS: BILIRUBIN Negative (Negative); BLOOD Negative (Negative); CLARITY Cloudy (Clear); COLOR Dark Yellow (Yellow); GLUCOSE Negative (Negative); KETONE Trace (Negative); LEUKO ESTERASE 1+ (Negative); NITRITE Negative (Negative); SPECIFIC GRAVITY >= 1.030 (1.001-1.030)
[2020-08-26 11:30] LABS: BACTERIA 4+; EPITHELIAL CELLS 21-30; MUCOUS 2+; WBC 16-20 wbc/hpf (0-5)
[2020-08-26 12:37] LABS: BASO % 0.7 % (0.0-1.0); EOS # 0.1 10*3/uL (0.0-0.4); EOS % 1.8 % (1.0-4.0); HEMATOCRIT 39.1 % (37.0-47.0); LYMPH % 32.7 % (27.0-41.0); MEAN CELL VOLUME 85.7 fl (81.0-99.0); MEAN CORPUSCULAR HGB 25.4 pg (27.0-31.0); MEAN CORPUSCULAR HGB CONC 29.7 g/dl (33.0-37.0); MEAN PLATELET VOLUME 9.4 fl (9.6-12.3); MONO # 0.5 10*3/uL (0.1-1.0); MONO % 8.4 % (3.0-9.0); NEUT # 3.4 10*3/uL (2.3-7.9); NEUT % 56.2 % (47.0-73.0); PLATELET COUNT AUTOMATED 520 10*3/uL (130-400); RED BLOOD COUNT 4.56 10*6/uL (4.10-5.10); RED CELL DISTRI WIDTH 14.6 % (0-14.5); WHITE BLOOD COUNT 6.1 10*3/uL (4.8-10.8)
[2020-08-26 13:43] LABS: ALBUMIN 3.3 gm/dl (3.1-4.5); ALKALINE PHOSPHATASE 190 U/L (45-117); BUN 7 mg/dl (7-24); CHLORIDE 110 mmol/L (98-107); CREATININE 0.67 mg/dL (0.55-1.02); LIPASE 273 U/L (73-393); POTASSIUM 4.2 mmol/L (3.5-5.1); SGOT/AST 22 IU/L (3-35); SGPT/ALT 45 U/L (12-78); SODIUM 139 mmol/L (136-145); TOTAL PROTEIN 7.5 gm/dL (6.4-8.2)
--- NOTE | 2020-08-26 13:50 | NUR ---
PATIENT STATES THAT SHE FEELS "A LITTER BETTER BUT ABOUT THE SAME". CALL LIGHT IN REACH. WILL CONTINUE TO MONITOR PT.
--- NOTE | 2020-08-26 15:57 | NUR ---
PATIENT INFORMED THAT SHE IS NPO.
[2020-08-26 18:17] VITALS: BP 100/67
--- NOTE | 2020-08-26 18:17 | NUR ---
PT C/O MIDEPIGASTRIC PAIN OF 8 OUT OF 10. IVF INFUSING PER ORDERS. SEE EMAR. RESP EASY AND NONLABORED ON ROOM AIR. CALL LIGHT IN REACH.
--- NOTE | 2020-08-26 19:05 | NUR ---
PATIENT RESTING AT THIS TIME. CALL LIGHT IN REACH. PATIENT STATES THAT SHE HAS HAD "SOME RELIEF" OF PAIN. WILL CONTINUE TO MONITOR PT.
[2020-08-26 19:20] VITALS: BP 118/76
--- NOTE | 2020-08-26 20:45 | NUR ---
PATIENT RESTING. NOTES DISCOMFORT. PATIENT LATERAL NICOLE POSITION AND PLAYING ON HER PHONE. WILL CONTINUE TO MONITOR PT.
--- NOTE | 2020-08-26 21:10 | NUR ---
PATIENT RESTING. REQUESTING SOMETHING STRONGER FOR PAIN.
--- NOTE | 2020-08-26 21:15 | NUR ---
PATIENT MEDICATED PER EMAR. TEARFUL. WILL CONTINUE TO MONITOR PT.
--- NOTE | 2020-08-26 21:41 | NUR ---
RESTING AT THIS TIME. CALL LIGHT IN REACH. RESP EASY AND NON LABORED. EASILY AROUSABLE. WILL CONTINUE TO MONITOR PT.
[2020-08-26 23:28] VITALS: BP 106/73
--- NOTE | 2020-08-26 23:40 | NUR ---
REPORT FROM LAMBERT SENIOR AUDITOR.
[2020-08-27] VITALS (8 sets, daily range): BP systolic 102–113; BP diastolic 51–76
--- NOTE | 2020-08-27 00:31 | NUR ---
PT. RESTING IN BED, APPEARS TO BE IN NO DISTRESS. RR EASY AND NON-LABORED. CALL LIGHT WITHIN REACH. WILL CONTINUE TO MONITOR.
--- NOTE | 2020-08-27 07:00 | NUR ---
PT. RESTING IN BED ON CELL PHONE. RR EASY AND NON-LABORED. NO DISTRESS NOTED. CALL LIGHT WITHIN REACH. WILL CONTINUE TO MONITOR.
--- NOTE | 2020-08-27 08:23 | NUR ---
PT REQUESTING PAIN MEDICATION AT THIS TIME.
[2020-08-27 08:27] LABS: BASO # 0.1 10*3/uL (0.0-0.1); EOS # 0.2 10*3/uL (0.0-0.4); EOS % 3.4 % (1.0-4.0); HEMATOCRIT 34.3 % (37.0-47.0); LYMPH # 1.9 10*3/uL (1.3-4.4); LYMPH % 31.1 % (27.0-41.0); MEAN CORPUSCULAR HGB 25.2 pg (27.0-31.0); MONO # 0.6 10*3/uL (0.1-1.0); MONO % 10.1 % (3.0-9.0); NEUT # 3.2 10*3/uL (2.3-7.9); NEUT % 54.2 % (47.0-73.0); PLATELET COUNT AUTOMATED 435 10*3/uL (130-400); RED BLOOD COUNT 3.81 10*6/uL (4.10-5.10); RED CELL DISTRI WIDTH 14.6 % (0-14.5); WHITE BLOOD COUNT 5.9 10*3/uL (4.8-10.8)
--- NOTE | 2020-08-27 08:51 | NUR ---
PT IS AOX3, C/O EPIGASTRIC PAIN, DILUADID ADMINSTERED PER ORDER. PT IS NPO AT THIS TIME. VS WNL. RESPIRATIONS EASY AND NON LABORED, LUNGS CLEAR, ABD SOFT, TENDER TO TOUCH, NORMOACTIVE BS X4. NS INFUSING AT 80 CC/HR PER ORDER. CALL LIGHT IN REACH, WILL CONTINUE TO MONITOR.
[2020-08-27 09:00] LABS: ALBUMIN 2.8 gm/dl (3.1-4.5); ALKALINE PHOSPHATASE 173 U/L (45-117); BUN 9 mg/dl (7-24); CHLORIDE 111 mmol/L (98-107); LIPASE 301 U/L (73-393); POTASSIUM 4.8 mmol/L (3.5-5.1); SGOT/AST 31 IU/L (3-35); SGPT/ALT 38 U/L (12-78); SODIUM 141 mmol/L (136-145); TOTAL PROTEIN 6.1 gm/dL (6.4-8.2)
--- NOTE | 2020-08-27 09:10 | NUR ---
CALL PLACED TO DR. NOWAK, NO ANSWER LEFT MESSAGE FOR CALL BACK REGARDING CONSULT.
--- NOTE | 2020-08-27 13:14 | NUR ---
PT RESTING WITH EYES CLOSED, MEDICATED FOR PAIN AT 1130.
--- NOTE | 2020-08-27 17:44 | NUR ---
Time: 1743 A 40 year old FEMALE admitted to 5E under services of KOTA ALVA DO. Pt. arrived via wheel chair from ER. Chief complaint: ABDOMINAL PAIN. TIARA GOODSON
--- NOTE | 2020-08-27 18:07 | NUR ---
MEDICATED WITH PRN DILAUDID PER ORDER AND REQUEST FOR ABDOMINAL PAIN RATED AT A 9 OUT OF 10.
--- NOTE | 2020-08-27 19:28 | NUR ---
DR. NOWAK AWARE CT IS RESULTED.
--- NOTE | 2020-08-27 20:00 | NUR ---
DR. NOWAK HERE TO SEE PT.; NEW ORDERS GIVEN TO THIS R.N.
--- NOTE | 2020-08-27 21:01 | NUR ---
MEDICATED WITH DILAUDID 1 MG SLOW IV PUSH FOR C/O MIDSTERNAL ABDOMINAL PAIN; WILL CONTINUE TO MONITOR.
--- NOTE | 2020-08-27 22:00 | NUR ---
DR. NOWAK CALLED IN; PT. IS TO HAVE AN ERCP IN THE MORNING.
--- NOTE | 2020-08-27 22:15 | NUR ---
RESTING IN BED; VOICES NO C;O AT THIS TIME. DILAUDID APPARENTLY EFFECTIVE.
[2020-08-28] VITALS (10 sets, daily range): BP systolic 87–111; BP diastolic 50–71
--- NOTE | 2020-08-28 00:06 | NUR ---
MEDICATED WITH DILAUDID FOR C/O MIDSTERANL ABDOMINAL PAIN RATED AN 8/10.
--- NOTE | 2020-08-28 01:00 | NUR ---
RESTING IN BED; VOICES NO C/O AT THIS TIME. DILAUDID APPARENTLY SOMEWHAT EFFECTIVE. CALL LIGHT WITHIN REACH. IV FLUIDS CONTINUE TO INFUSE WITHOUT DIFFICULTY; SITE ASYMPTOMATIC.
--- NOTE | 2020-08-28 06:27 | NUR ---
MEDICATED WITH DILAUDID FOR C/O MIDABDOMINAL PAIN RATED AN 8/10.
[2020-08-28 07:00] LABS: HEMATOCRIT 33.1 % (37.0-47.0)
--- NOTE | 2020-08-28 07:00 | NUR ---
MEDICATION MOSTLY EFFEFTIVE PER PT
[2020-08-28 07:13] LABS: LIPASE 209 U/L (73-393)
--- NOTE | 2020-08-28 07:30 | NUR ---
PT RESTING IN BED. RESPS EASY AND NON LABORED. NO S/S OF DISTRESS NOTED. VSS. WHITE BOARD UPDATED. POC DISCUSSED W PT. A/O X3. C/O RUQ ABD PAIN AND SLIGHT NAUSEA. HYPOACTIVE BOWEL SOUNDS.+FLATUS.BM 11. IVF INFUSING W/O INCIDENT. WILL CONTINUE TO MONITOR. CALL LIGHT WITHIN REACH.
--- NOTE | 2020-08-28 09:41 | NUR ---
PT C/O 05/24 ACHING/STABBING ABD PAIN.MEDICATED PER ORDER. WILL MONITOR FOR RELIEF. RESPS EASY AND NON LABORED. SITTING UP IN BED. CALL LIGHT WITHIN REACH.
--- NOTE | 2020-08-28 10:15 | NUR ---
MEDICATION MOSTLY EFFECTIVE PER PT
--- NOTE | 2020-08-28 10:39 | NUR ---
PT TAKEN DOWN TO SURGERY
--- NOTE | 2020-08-28 12:45 | NUR ---
PT BACK FROM SURGERY. VSS. A/O X3. NO C/O OF PAIN. WILL CONTINUE TO MONITOR. GIVEN HOT TEA AND POPSICLES PER HER REQUEST. CALL LIGHT WITHIN REACH.
--- NOTE | 2020-08-28 13:29 | NUR ---
PT C/O 05/24 ABD PAIN. MEDICATED PER ORDER. WILL MONITOR FOR RELIEF. RESTING IN BED WATCHING TV. CALL LIGHT WITHIN REACH.
--- NOTE | 2020-08-28 14:20 | NUR ---
MEDICATION MOSTLY EFFECTIVE PER PT. STATES SHE FEELS LIKE THE PROCEDURE HELPED HER.
--- NOTE | 2020-08-28 16:29 | NUR ---
PT C/O 05/24 ACHING ABD PAIN.MEDICATED PER ORDER. WILL MONITOR FOR RELIEF. RESPS EASY AND NON LABORED. SITTING IN BED ON CELL PHONE. CALL LIGHT WITHIN REACH.
--- NOTE | 2020-08-28 17:20 | NUR ---
MEDICATION EFFECTIVE PER PT
--- NOTE | 2020-08-28 20:46 | NUR ---
MEDICATED WITH DILAUDID FOR C/O ABDOMINAL PAIN RATED A 5/10.
--- NOTE | 2020-08-28 21:30 | NUR ---
STATES GANT HELPED.
[2020-08-29] VITALS: BP 98/57
--- NOTE | 2020-08-29 00:23 | NUR ---
C/O PAIN; MEDICATED WITH DILAUDID FOR ABDOMINAL PAIN RATED A 5/10.
--- NOTE | 2020-08-29 02:00 | NUR ---
RESTING IN BED; VOICES NO C/O. DILAUDID APPARENTLY EFFECTIVE.
--- NOTE | 2020-08-29 03:35 | NUR ---
PT GIVEN DILAUDID 1 MG VIA IVP FOR C/O PAIN. WILL MONITOR FOR EFFECTIVENESS.
--- NOTE | 2020-08-29 04:30 | NUR ---
RESTING IN BED; VOICES NO C/O AT THIS TIME. DILAUID APPARENTLY EFFECTIVE.
--- NOTE | 2020-08-29 07:30 | NUR ---
PT RESTING IN BED. RESPS EASY AND NON LABORED. NO S/S OF DISTRESS NOTED. VSS. WHITE BOARD UPDATED. POC DISCUSSED W PT. A/O X3. CONTINUES TO C/O RUQ ABD PAIN AND SLIGHT NAUSEA. IVF INFUSING W/O INCIDENT. WILL CONTINUE TO MONITOR. CALL LIGHT WITHIN REACH.
[2020-08-29 08:00] VITALS: BP 102/69
[2020-08-29 08:06] LABS: BASO # 0.1 10*3/uL (0.0-0.1); BASO % 0.9 % (0.0-1.0); EOS # 0.2 10*3/uL (0.0-0.4); EOS % 3.4 % (1.0-4.0); HEMATOCRIT 29.5 % (37.0-47.0); LYMPH # 1.9 10*3/uL (1.3-4.4); LYMPH % 34.2 % (27.0-41.0); MEAN CELL VOLUME 85.8 fl (81.0-99.0); MEAN CORPUSCULAR HGB 25.3 pg (27.0-31.0); MEAN CORPUSCULAR HGB CONC 29.5 g/dl (33.0-37.0); MEAN PLATELET VOLUME 9.5 fl (9.6-12.3); MONO # 0.7 10*3/uL (0.1-1.0); MONO % 12.5 % (3.0-9.0); NEUT # 2.8 10*3/uL (2.3-7.9); NEUT % 48.8 % (47.0-73.0); PLATELET COUNT AUTOMATED 416 10*3/uL (130-400); RED BLOOD COUNT 3.44 10*6/uL (4.10-5.10); RED CELL DISTRI WIDTH 14.2 % (0-14.5); WHITE BLOOD COUNT 5.6 10*3/uL (4.8-10.8)
[2020-08-29 08:21] LABS: ALBUMIN 2.6 gm/dl (3.1-4.5); BUN 3 mg/dl (7-24); CHLORIDE 110 mmol/L (98-107); CREATININE 0.58 mg/dL (0.55-1.02); POTASSIUM 4.1 mmol/L (3.5-5.1); SGOT/AST 40 IU/L (3-35); SGPT/ALT 41 U/L (12-78); SODIUM 141 mmol/L (136-145); TOTAL PROTEIN 6.2 gm/dL (6.4-8.2)
[2020-08-29 08:22] LABS: ALKALINE PHOSPHATASE 293 U/L (45-117)
--- NOTE | 2020-08-29 09:50 | NUR ---
PT REQUESTING IV PAIN MEDICATION. WHE ASKED SHE STATED SHE FEELS BETTER AND WANTS TO GO HOME TODAY. CURRENTLY SITTING UP IN BED ON CELL PHONE. NO S/S OF DISTRESS NOTED.QUESTIONED HER REGARDING PAIN. SHE STATES HER ABD FEELS ACHY DUE TO PROCEDURE YESTERDAY. EXPLAINED TO HER THE PERCOCET WOULD LAST LONGER. PT AGREEABLE TO TAKE.
--- NOTE | 2020-08-29 09:55 | NUR ---
PT MEDICATED PER HER REQUEST W PERCOCET FOR C/O UNBEARABLE ABD PAIN. PT SITTING UP IN BED ON CELL PHONE. PT ASKED IF DILAUDID HAD BEEN DISCONTINUED YET, EXPLAINED THAT THE DOCTOR WOULD PROBABLY D/C IT SOME TIME TODAY. PT BEGAN CRYING AND GRABBING AT ABD STATING SHE NEEDED IT FOR THE PAIN. CURRENTLY REQUESTING IV DILAUDID BEFORE DOCTOR D/C MEDICATION. WILL NOTIFY DR FOR ORDERS.
--- NOTE | 2020-08-29 10:00 | NUR ---
DR TATE NOTIFIED OF PT REQUEST FOR IV DILAUDID. SHE STATES SHE IS ON HER WAY UP TO THE FLOOR TO SEE PT.
--- NOTE | 2020-08-29 10:02 | NUR ---
NOTIFIED PT THAT DR TATE WAS ON HER WAY TO THE FLOOR TO SEE HER. PT CURRENTLY SITTING UP IN BED WATCHING TV. NO S/S OF DISTRESS NOTED. PT NO LONGER CRYING OR CLENCHING ABD. WILL CONTINUE TO MONITOR. CALL LIGHT WITHIN REACH.
--- NOTE | 2020-08-29 10:10 | NUR ---
DR BERTRAND INTO SEE PT
--- NOTE | 2020-08-29 11:00 | NUR ---
PT CONTINUES TO REST COMFORTABLY IN ROOM. NO S/S OF DISTRESS NOTED. VSS. CALL LIGHT WITHIN REACH.
--- NOTE | 2020-08-29 11:30 | NUR ---
Discharge instructions reviewed with patient/family. Patient receptive and verbalizes understanding. Follow-up care arranged. Written instructions given to patient/family. Faustina JEAN BAPTISTE Discharge Plan/Instructions have been completed. Hep Lock discontinued. Site asymptomatic. Pressure applied. Sterile dressing applied. FREYA JEAN BAPTISTE
[2020-08-30 06:06] LABS: HEP B CORE AB, IGM Negative (Negative); HEPATITIS B SURFACE AG Negative (Negative); HEPATITIS C VIRUS ANTIBODY <0.1 s/co (0.0-0.9)
== END 2020-08-29 11:30 | disposition home or self-care (01) ==
LOC: ED 10:34 → EDHOLD 15:06 → 5E 08-27 13:19
PROVIDERS: Internal Medicine Gastroenterology; Physician Assistant; Registered Nurse; Student in an Organized Health Care Education/Training Program; ADMIT Internal Medicine; ATTEND Internal Medicine
DX: R10.11 Right upper quadrant pain (principal); R11.2 Nausea with vomiting, unspecified; D47.3 Essential (hemorrhagic) thrombocythemia; E87.8 Other disorders of electrolyte and fluid balance, not elsewhere classified; K91.2 Postsurgical malabsorption, not elsewhere classified; E43 Unspecified severe protein-calorie malnutrition; K29.70 Gastritis, unspecified, without bleeding

== ENCOUNTER 2020-09-03 15:19 | Emergency (ER) | payer OTHER ==
[~2020-09-03] VITALS: Ht 154.9 cm; Wt 52.2 kg
[2020-09-03 16:08] LABS: BASO # 0.1 10*3/uL (0.0-0.1); BASO % 0.7 % (0.0-1.0); EOS # 0.2 10*3/uL (0.0-0.4); EOS % 2.6 % (1.0-4.0); HEMATOCRIT 35.4 % (37.0-47.0); LYMPH # 2.6 10*3/uL (1.3-4.4); LYMPH % 28.6 % (27.0-41.0); MEAN CELL VOLUME 82.7 fl (81.0-99.0); MEAN CORPUSCULAR HGB 24.8 pg (27.0-31.0); MEAN CORPUSCULAR HGB CONC 29.9 g/dl (33.0-37.0); MEAN PLATELET VOLUME 9.1 fl (9.6-12.3); MONO # 0.8 10*3/uL (0.1-1.0); MONO % 9.1 % (3.0-9.0); NEUT # 5.4 10*3/uL (2.3-7.9); NEUT % 58.8 % (47.0-73.0); PLATELET COUNT AUTOMATED 544 10*3/uL (130-400); RED BLOOD COUNT 4.28 10*6/uL (4.10-5.10); RED CELL DISTRI WIDTH 14.5 % (0-14.5); WHITE BLOOD COUNT 9.2 10*3/uL (4.8-10.8)
[2020-09-03 16:30] LABS: ALKALINE PHOSPHATASE 181 U/L (45-117); BUN 10 mg/dl (7-24); CHLORIDE 109 mmol/L (98-107); CREATININE 0.71 mg/dL (0.55-1.02); LIPASE 419 U/L (73-393); SGOT/AST 28 IU/L (3-35); SGPT/ALT 23 U/L (12-78); SODIUM 141 mmol/L (136-145); TOTAL PROTEIN 7.4 gm/dL (6.4-8.2)
[2020-09-03 16:47] LABS: BILIRUBIN Negative (Negative); BLOOD Negative (Negative); CLARITY Clear (Clear); COLOR Yellow (Yellow); GLUCOSE Negative (Negative); KETONE Negative (Negative); LEUKO ESTERASE Negative (Negative); NITRITE Negative (Negative); PH 5.5 (4.5-8.0); UROBILINOGEN 0.2 E.U./dl (0.0-1.0)
[2020-09-03 16:56] LABS: URINE AMPHETAMINES < 1000 (1000ng/ml); URINE BARBITURATES < 200 (200ng/ml); URINE BENZODIAZEPINES < 200 (200ng/ml); URINE CANNABINOIDS (THC) < 50 (50ng/ml); URINE COCAINE < 300 (300ng/ml); URINE METHADONE < 300 (300ng/ml); URINE OPIATES < 300 (300ng/ml)
[2020-09-03 16:58] LABS: URINE PHENCYCLIDINE < 25 (25ng/ml)
[2020-09-03 17:01] LABS: WBC 0-2 wbc/hpf (0-5)
== END 2020-09-03 17:28 | disposition home or self-care (01) ==
LOC: ED 15:19
PROVIDERS: Physician Assistant
DX: R10.30 Lower abdominal pain, unspecified (principal); R10.13 Epigastric pain; Z88.8 Allergy status to other drugs, medicaments and biological substances; Z79.899 Other long term (current) drug therapy

== ENCOUNTER 2020-09-09 23:44 | Emergency (ER) | payer OTHER ==
[2020-09-10 00:44] LABS: BASO # 0.1 10*3/uL (0.0-0.1); BASO % 0.8 % (0.0-1.0); EOS # 0.2 10*3/uL (0.0-0.4); EOS % 2.4 % (1.0-4.0); HEMATOCRIT 30.8 % (37.0-47.0); LYMPH # 2.8 10*3/uL (1.3-4.4); LYMPH % 30.6 % (27.0-41.0); MEAN CELL VOLUME 81.9 fl (81.0-99.0); MEAN CORPUSCULAR HGB 25.3 pg (27.0-31.0); MEAN CORPUSCULAR HGB CONC 30.8 g/dl (33.0-37.0); MEAN PLATELET VOLUME 9.2 fl (9.6-12.3); MONO # 0.9 10*3/uL (0.1-1.0); MONO % 10.1 % (3.0-9.0); NEUT # 5.1 10*3/uL (2.3-7.9); NEUT % 55.2 % (47.0-73.0); NUCLEATED RED BLOOD CELL 0.2 % (0.0-0.0); PLATELET COUNT AUTOMATED 488 10*3/uL (130-400); RED BLOOD COUNT 3.76 10*6/uL (4.10-5.10); RED CELL DISTRI WIDTH 14.6 % (0-14.5); WHITE BLOOD COUNT 9.2 10*3/uL (4.8-10.8)
[2020-09-10 01:02] LABS: ALBUMIN 3.1 gm/dl (3.1-4.5); ALKALINE PHOSPHATASE 117 U/L (45-117); BUN 6 mg/dl (7-24); CHLORIDE 109 mmol/L (98-107); CREATININE 0.71 mg/dL (0.55-1.02); LIPASE 157 U/L (73-393); POTASSIUM 4.2 mmol/L (3.5-5.1); SGOT/AST 21 IU/L (3-35); SGPT/ALT 18 U/L (12-78); SODIUM 141 mmol/L (136-145); TOTAL PROTEIN 6.6 gm/dL (6.4-8.2)
== END 2020-09-10 00:50 | disposition left against medical advice (07) ==
LOC: ED 23:44
PROVIDERS: Internal Medicine
DX: R10.9 Unspecified abdominal pain (principal); R19.7 Diarrhea, unspecified; R11.2 Nausea with vomiting, unspecified; Z88.8 Allergy status to other drugs, medicaments and biological substances; Z88.5 Allergy status to narcotic agent; Z79.899 Other long term (current) drug therapy; Z53.29 Procedure and treatment not carried out because of patient's decision for other reasons

== ENCOUNTER 2020-09-13 23:51 | Emergency (ER) | payer OTHER ==
[~2020-09-13] VITALS: Ht 154.9 cm; Wt 52.2 kg
[2020-09-14 00:39] LABS: BASO % 0.3 % (0.0-1.0); EOS % 0.3 % (1.0-4.0); HEMATOCRIT 30.3 % (37.0-47.0); LYMPH # 2.7 10*3/uL (1.3-4.4); LYMPH % 19.6 % (27.0-41.0); MEAN CELL VOLUME 82.1 fl (81.0-99.0); MEAN CORPUSCULAR HGB 24.7 pg (27.0-31.0); MEAN PLATELET VOLUME 8.7 fl (9.6-12.3); MONO # 1.4 10*3/uL (0.1-1.0); MONO % 9.8 % (3.0-9.0); NEUT # 9.6 10*3/uL (2.3-7.9); NEUT % 69.6 % (47.0-73.0); PLATELET COUNT AUTOMATED 497 10*3/uL (130-400); RED BLOOD COUNT 3.69 10*6/uL (4.10-5.10); RED CELL DISTRI WIDTH 14.6 % (0-14.5); WHITE BLOOD COUNT 13.8 10*3/uL (4.8-10.8)
[2020-09-14 00:54] LABS: ALKALINE PHOSPHATASE 118 U/L (45-117); BUN 7 mg/dl (7-24); CHLORIDE 112 mmol/L (98-107); CREATININE 0.66 mg/dL (0.55-1.02); LIPASE 191 U/L (73-393); POTASSIUM 3.8 mmol/L (3.5-5.1); SGOT/AST 10 IU/L (3-35); SGPT/ALT 15 U/L (12-78); SODIUM 143 mmol/L (136-145); TOTAL PROTEIN 6.8 gm/dL (6.4-8.2)
[2020-09-14 01:13] LABS: BILIRUBIN Negative (Negative); BLOOD Negative (Negative); CLARITY Cloudy (Clear); COLOR Dark Yellow (Yellow); GLUCOSE Negative (Negative); KETONE Trace (Negative); LEUKO ESTERASE Trace (Negative); NITRITE Negative (Negative); PH 5.5 (4.5-8.0); SPECIFIC GRAVITY >= 1.030 (1.001-1.030)
[2020-09-14 01:33] LABS: EPITHELIAL CELLS 21-30
[2020-09-14 01:34] LABS: BACTERIA TRACE
== END 2020-09-14 06:11 | disposition home or self-care (01) ==
LOC: ED 23:51
PROVIDERS: Emergency Medicine
DX: R10.11 Right upper quadrant pain (principal); R11.2 Nausea with vomiting, unspecified; G43.909 Migraine, unspecified, not intractable, without status migrainosus; M81.0 Age-related osteoporosis without current pathological fracture; Z88.8 Allergy status to other drugs, medicaments and biological substances; Z88.6 Allergy status to analgesic agent; Z79.899 Other long term (current) drug therapy; Z86.718 Personal history of other venous thrombosis and embolism; Z87.891 Personal history of nicotine dependence

== ENCOUNTER 2020-10-10 20:55 | Emergency (ER) | payer OTHER ==
[~2020-10-10] VITALS: Ht 154.9 cm; Wt 52.2 kg
== END 2020-10-10 21:30 | disposition home or self-care (01) ==
LOC: ED 20:55
DX: K50.90 Crohn's disease, unspecified, without complications (principal); Z88.8 Allergy status to other drugs, medicaments and biological substances; Z88.6 Allergy status to analgesic agent; Z79.899 Other long term (current) drug therapy; Z87.891 Personal history of nicotine dependence

== ENCOUNTER 2020-12-11 23:14 | Emergency (ER) | payer OTHER ==
[~2020-12-11] VITALS: Ht 154.9 cm; Wt 52.2 kg
[2020-12-12 00:25] LABS: ALBUMIN 3.1 gm/dl (3.1-4.5); ALKALINE PHOSPHATASE 89 U/L (45-117); BUN 10 mg/dl (7-24); CHLORIDE 108 mmol/L (98-107); CREATININE 0.69 mg/dL (0.55-1.02); LIPASE 123 U/L (73-393); POTASSIUM 4.2 mmol/L (3.5-5.1); SGOT/AST 17 IU/L (3-35); SGPT/ALT 23 U/L (12-78); SODIUM 139 mmol/L (136-145); TOTAL PROTEIN 6.6 gm/dL (6.4-8.2)
[2020-12-12 00:41] LABS: BASO # 0.1 10*3/uL (0.0-0.1); BASO % 0.9 % (0.0-1.0); EOS # 0.1 10*3/uL (0.0-0.4); EOS % 1.7 % (1.0-4.0); HEMATOCRIT 33.4 % (37.0-47.0); LYMPH # 2.4 10*3/uL (1.3-4.4); LYMPH % 29.5 % (27.0-41.0); MEAN CELL VOLUME 82.1 fl (81.0-99.0); MEAN CORPUSCULAR HGB 25.1 pg (27.0-31.0); MEAN CORPUSCULAR HGB CONC 30.5 g/dl (33.0-37.0); MEAN PLATELET VOLUME 9.4 fl (9.6-12.3); MONO # 0.9 10*3/uL (0.1-1.0); NEUT # 4.5 10*3/uL (2.3-7.9); NEUT % 56.3 % (47.0-73.0); PLATELET COUNT AUTOMATED 326 10*3/uL (130-400); RED BLOOD COUNT 4.07 10*6/uL (4.10-5.10); RED CELL DISTRI WIDTH 20.1 % (0-14.5)
[2020-12-12 01:22] LABS: BILIRUBIN Negative (Negative); BLOOD Negative (Negative); CLARITY Clear (Clear); COLOR Yellow (Yellow); GLUCOSE Negative (Negative); KETONE Negative (Negative); LEUKO ESTERASE Negative (Negative); NITRITE Negative (Negative); UROBILINOGEN 0.2 E.U./dl (0.0-1.0)
[2020-12-12 01:30] LABS: EPITHELIAL CELLS 16-20
[2020-12-12] MEDS ORDERED: PREDNISONE20 M1 PO (02:30)
[2020-12-12] MEDS ORDERED: ZOFRAN4 MG PO (02:30)
[2020-12-12] MEDS ORDERED: FLAGYL500 MG PO (02:30)
[2020-12-12] MEDS ORDERED: CIPRO500 MG PO (02:30)
[2020-12-12] MEDS ORDERED: Percocet 325 MG1 TAB PO (02:30)
== END 2020-12-12 03:39 | disposition home or self-care (01) ==
LOC: ED 23:14
PROVIDERS: Emergency Medicine
DX: K50.90 Crohn's disease, unspecified, without complications (principal); M81.0 Age-related osteoporosis without current pathological fracture; G43.909 Migraine, unspecified, not intractable, without status migrainosus; Z88.8 Allergy status to other drugs, medicaments and biological substances; Z88.5 Allergy status to narcotic agent; Z79.899 Other long term (current) drug therapy; Z90.49 Acquired absence of other specified parts of digestive tract; Z87.891 Personal history of nicotine dependence; Z86.14 Personal history of Methicillin resistant Staphylococcus aureus infection; Z86.718 Personal history of other venous thrombosis and embolism; Z86.711 Personal history of pulmonary embolism

== ENCOUNTER 2020-12-12 18:21 | Emergency (ER) | payer OTHER ==
[~2020-12-12] VITALS: Ht 154.9 cm; Wt 52.2 kg
[~2020-12-12 18:21] MED LIST changes: +CIPRO500 MG PO; +FLAGYL500 MG PO; +PREDNISONE20 M1 PO; +Percocet 325 MG1 TAB PO
[2020-12-12 19:20] LABS: BASO % 0.2 % (0.0-1.0); EOS % 0.2 % (1.0-4.0); HEMATOCRIT 33.9 % (37.0-47.0); LYMPH # 1.9 10*3/uL (1.3-4.4); LYMPH % 15.5 % (27.0-41.0); MEAN CELL VOLUME 80.7 fl (81.0-99.0); MEAN CORPUSCULAR HGB 24.5 pg (27.0-31.0); MEAN CORPUSCULAR HGB CONC 30.4 g/dl (33.0-37.0); MONO % 7.9 % (3.0-9.0); NEUT # 9.1 10*3/uL (2.3-7.9); NEUT % 75.9 % (47.0-73.0); PLATELET COUNT AUTOMATED 267 10*3/uL (130-400); RED CELL DISTRI WIDTH 19.9 % (0-14.5)
[2020-12-12 19:36] LABS: ALBUMIN 3.2 gm/dl (3.1-4.5); ALKALINE PHOSPHATASE 101 U/L (45-117); BUN 8 mg/dl (7-24); CHLORIDE 108 mmol/L (98-107); CREATININE 0.66 mg/dL (0.55-1.02); LIPASE 117 U/L (73-393); POTASSIUM 4.3 mmol/L (3.5-5.1); SGOT/AST 10 IU/L (3-35); SGPT/ALT 21 U/L (12-78); SODIUM 138 mmol/L (136-145); TOTAL PROTEIN 6.8 gm/dL (6.4-8.2)
== END 2020-12-12 20:42 | disposition home or self-care (01) ==
LOC: ED 18:21
PROVIDERS: Physician Assistant
DX: R10.9 Unspecified abdominal pain (principal); R11.0 Nausea; R19.7 Diarrhea, unspecified; G43.909 Migraine, unspecified, not intractable, without status migrainosus; Z88.5 Allergy status to narcotic agent; Z87.891 Personal history of nicotine dependence; Z88.8 Allergy status to other drugs, medicaments and biological substances; Z79.899 Other long term (current) drug therapy; Z90.49 Acquired absence of other specified parts of digestive tract; Z98.890 Other specified postprocedural states

== ENCOUNTER 2020-12-20 18:07 | Emergency (ER) | payer OTHER ==
[~2020-12-20] VITALS: Wt 52.2 kg
[2020-12-20 19:26] LABS: BILIRUBIN Negative (Negative); BLOOD Negative (Negative); CLARITY Cloudy (Clear); COLOR Dark Yellow (Yellow); GLUCOSE Negative (Negative); KETONE Trace (Negative); LEUKO ESTERASE Negative (Negative); NITRITE Negative (Negative); PH 5.5 (4.5-8.0); SPECIFIC GRAVITY >= 1.030 (1.001-1.030)
[2020-12-20 19:29] LABS: BASO # 0.1 10*3/uL (0.0-0.1); BASO % 0.7 % (0.0-1.0); EOS # 0.2 10*3/uL (0.0-0.4); HEMATOCRIT 40.1 % (37.0-47.0); LYMPH # 2.4 10*3/uL (1.3-4.4); LYMPH % 31.2 % (27.0-41.0); MEAN CELL VOLUME 82.7 fl (81.0-99.0); MEAN CORPUSCULAR HGB 24.9 pg (27.0-31.0); MEAN CORPUSCULAR HGB CONC 30.2 g/dl (33.0-37.0); MEAN PLATELET VOLUME 8.7 fl (9.6-12.3); MONO # 0.9 10*3/uL (0.1-1.0); MONO % 11.3 % (3.0-9.0); NEUT # 4.1 10*3/uL (2.3-7.9); NEUT % 54.5 % (47.0-73.0); PLATELET COUNT AUTOMATED 586 10*3/uL (130-400); RED BLOOD COUNT 4.85 10*6/uL (4.10-5.10); RED CELL DISTRI WIDTH 19.5 % (0-14.5); WHITE BLOOD COUNT 7.6 10*3/uL (4.8-10.8)
[2020-12-20 19:32] LABS: BACTERIA 1+; MUCOUS TRACE; RBC 0-2 rbc/hpf (0-2); WBC 0-2 wbc/hpf (0-5)
[2020-12-20 19:43] LABS: ALBUMIN 3.4 gm/dl (3.1-4.5); ALKALINE PHOSPHATASE 98 U/L (45-117); BUN 9 mg/dl (7-24); CHLORIDE 106 mmol/L (98-107); CREATININE 0.69 mg/dL (0.55-1.02); LIPASE 123 U/L (73-393); POTASSIUM 4.2 mmol/L (3.5-5.1); SGOT/AST 17 IU/L (3-35); SGPT/ALT 30 U/L (12-78); SODIUM 139 mmol/L (136-145); TOTAL PROTEIN 7.3 gm/dL (6.4-8.2)
== END 2020-12-20 20:59 | disposition home or self-care (01) ==
LOC: ED 18:07
PROVIDERS: Physician Assistant
DX: K50.90 Crohn's disease, unspecified, without complications (principal); M81.0 Age-related osteoporosis without current pathological fracture; G43.909 Migraine, unspecified, not intractable, without status migrainosus; Z88.8 Allergy status to other drugs, medicaments and biological substances; Z88.5 Allergy status to narcotic agent; Z79.899 Other long term (current) drug therapy; Z90.49 Acquired absence of other specified parts of digestive tract; Z98.890 Other specified postprocedural states; Z87.891 Personal history of nicotine dependence

== ENCOUNTER 2020-12-26 20:10 | Emergency (ER) | payer OTHER ==
[~2020-12-26] VITALS: Ht 154.9 cm; Wt 52.2 kg
[2020-12-26 21:09] LABS: BASO % 0.2 % (0.0-1.0); EOS # 0.1 10*3/uL (0.0-0.4); EOS % 1.6 % (1.0-4.0); HEMATOCRIT 35.5 % (37.0-47.0); LYMPH # 2.6 10*3/uL (1.3-4.4); LYMPH % 30.2 % (27.0-41.0); MEAN CELL VOLUME 81.8 fl (81.0-99.0); MEAN CORPUSCULAR HGB 25.3 pg (27.0-31.0); MEAN PLATELET VOLUME 8.8 fl (9.6-12.3); MONO # 0.6 10*3/uL (0.1-1.0); MONO % 6.7 % (3.0-9.0); NEUT # 5.3 10*3/uL (2.3-7.9); PLATELET COUNT AUTOMATED 423 10*3/uL (130-400); RED BLOOD COUNT 4.34 10*6/uL (4.10-5.10); RED CELL DISTRI WIDTH 19.1 % (0-14.5); WHITE BLOOD COUNT 8.7 10*3/uL (4.8-10.8)
[2020-12-26 21:24] LABS: ALBUMIN 3.4 gm/dl (3.1-4.5); ALKALINE PHOSPHATASE 91 U/L (45-117); BUN 6 mg/dl (7-24); CHLORIDE 108 mmol/L (98-107); CREATININE 0.74 mg/dL (0.55-1.02); LIPASE 159 U/L (73-393); POTASSIUM 3.8 mmol/L (3.5-5.1); SGOT/AST 8 IU/L (3-35); SGPT/ALT 22 U/L (12-78); SODIUM 141 mmol/L (136-145); TOTAL PROTEIN 6.8 gm/dL (6.4-8.2)
[2020-12-26 21:26] LABS: BILIRUBIN Negative (Negative); BLOOD Negative (Negative); CLARITY Clear (Clear); COLOR Yellow (Yellow); GLUCOSE Negative (Negative); KETONE Negative (Negative); LEUKO ESTERASE Negative (Negative); NITRITE Negative (Negative); PH 6.5 (4.5-8.0); UROBILINOGEN 0.2 E.U./dl (0.0-1.0)
[2020-12-26 21:33] LABS: RBC 0-2 rbc/hpf (0-2)
[2020-12-26 21:34] LABS: BACTERIA TRACE; WBC 0-2 wbc/hpf (0-5)
== END 2020-12-26 21:33 | disposition left against medical advice (07) ==
LOC: ED 20:10
PROVIDERS: Emergency Medicine
DX: K50.90 Crohn's disease, unspecified, without complications (principal); R19.7 Diarrhea, unspecified; G43.909 Migraine, unspecified, not intractable, without status migrainosus; M81.0 Age-related osteoporosis without current pathological fracture; Z88.8 Allergy status to other drugs, medicaments and biological substances; Z88.5 Allergy status to narcotic agent; Z79.899 Other long term (current) drug therapy; Z79.2 Long term (current) use of antibiotics; Z86.718 Personal history of other venous thrombosis and embolism; Z86.14 Personal history of Methicillin resistant Staphylococcus aureus infection; Z86.711 Personal history of pulmonary embolism; Z90.49 Acquired absence of other specified parts of digestive tract; Z98.890 Other specified postprocedural states; Z87.891 Personal history of nicotine dependence

== ENCOUNTER 2021-01-18 17:58 | Emergency (ER) | payer OTHER ==
[~2021-01-18] VITALS: Ht 154.9 cm; Wt 54.4 kg
[2021-01-18 18:43] LABS: BASO % 0.4 % (0.0-1.0); EOS # 0.1 10*3/uL (0.0-0.4); EOS % 1.3 % (1.0-4.0); HEMATOCRIT 32.2 % (37.0-47.0); LYMPH # 2.2 10*3/uL (1.3-4.4); LYMPH % 26.5 % (27.0-41.0); MEAN CELL VOLUME 83.9 fl (81.0-99.0); MEAN CORPUSCULAR HGB 25.8 pg (27.0-31.0); MEAN CORPUSCULAR HGB CONC 30.7 g/dl (33.0-37.0); MEAN PLATELET VOLUME 8.7 fl (9.6-12.3); MONO # 0.6 10*3/uL (0.1-1.0); MONO % 6.8 % (3.0-9.0); NEUT # 5.3 10*3/uL (2.3-7.9); NEUT % 64.8 % (47.0-73.0); PLATELET COUNT AUTOMATED 459 10*3/uL (130-400); RED BLOOD COUNT 3.84 10*6/uL (4.10-5.10); RED CELL DISTRI WIDTH 17.5 % (0-14.5); WHITE BLOOD COUNT 8.2 10*3/uL (4.8-10.8)
[2021-01-18 18:57] LABS: ALKALINE PHOSPHATASE 78 U/L (45-117); BUN 7 mg/dl (7-24); CHLORIDE 110 mmol/L (98-107); CREATININE 0.91 mg/dL (0.55-1.02); LIPASE 213 U/L (73-393); POTASSIUM 3.6 mmol/L (3.5-5.1); SGOT/AST 12 IU/L (3-35); SGPT/ALT 21 U/L (12-78); SODIUM 140 mmol/L (136-145); TOTAL PROTEIN 6.3 gm/dL (6.4-8.2)
[2021-01-18 19:41] LABS: BILIRUBIN Negative (Negative); BLOOD Negative (Negative); CLARITY Clear (Clear); COLOR Yellow (Yellow); GLUCOSE Negative (Negative); KETONE Negative (Negative); LEUKO ESTERASE Negative (Negative); NITRITE Negative (Negative); PH 5.5 (4.5-8.0); SPECIFIC GRAVITY <= 1.005 (1.001-1.030); UROBILINOGEN 0.2 E.U./dl (0.0-1.0)
[2021-01-18 19:56] LABS: BACTERIA TRACE; EPITHELIAL CELLS 0-2; RBC 0-2 rbc/hpf (0-2); WBC 0-2 wbc/hpf (0-5)
== END 2021-01-18 21:00 | disposition left against medical advice (07) ==
LOC: ED 17:58
PROVIDERS: Emergency Medicine
DX: R10.9 Unspecified abdominal pain (principal); F17.200 Nicotine dependence, unspecified, uncomplicated; Z88.8 Allergy status to other drugs, medicaments and biological substances; Z88.5 Allergy status to narcotic agent; Z79.899 Other long term (current) drug therapy; G43.909 Migraine, unspecified, not intractable, without status migrainosus; Z98.890 Other specified postprocedural states; Z90.49 Acquired absence of other specified parts of digestive tract

== ENCOUNTER 2021-02-10 18:19 | Emergency (ER) | payer OTHER | END 2021-02-10 19:19 | disposition left against medical advice (07) | LOC: ED 18:19 | DX: R10.9 Unspecified abdominal pain (principal); Z53.21 Procedure and treatment not carried out due to patient leaving prior to being seen by health care provider ==

== ENCOUNTER 2021-02-11 01:59 | Emergency (ER) | payer OTHER ==
[~2021-02-11] VITALS: Ht 154.9 cm; Wt 54.4 kg
[2021-02-11 03:45] LABS: BASO % 0.1 % (0.0-1.0); EOS % 0.1 % (1.0-4.0); LYMPH # 0.7 10*3/uL (1.3-4.4); LYMPH % 7.6 % (27.0-41.0); MEAN CELL VOLUME 86.2 fl (81.0-99.0); MEAN CORPUSCULAR HGB 25.6 pg (27.0-31.0); MEAN CORPUSCULAR HGB CONC 29.7 g/dl (33.0-37.0); MEAN PLATELET VOLUME 9.1 fl (9.6-12.3); MONO # 0.3 10*3/uL (0.1-1.0); MONO % 2.9 % (3.0-9.0); NEUT # 7.5 10*3/uL (2.3-7.9); NEUT % 88.2 % (47.0-73.0); PLATELET COUNT AUTOMATED 510 10*3/uL (130-400); RED BLOOD COUNT 3.48 10*6/uL (4.10-5.10); RED CELL DISTRI WIDTH 16.3 % (0-14.5); WHITE BLOOD COUNT 8.5 10*3/uL (4.8-10.8)
[2021-02-11 04:01] LABS: ALKALINE PHOSPHATASE 78 U/L (45-117); BUN 3 mg/dl (7-24); CHLORIDE 112 mmol/L (98-107); LIPASE 42 U/L (73-393); POTASSIUM 3.6 mmol/L (3.5-5.1); SGOT/AST 18 IU/L (3-35); SGPT/ALT 39 U/L (12-78); SODIUM 141 mmol/L (136-145); TOTAL PROTEIN 5.9 gm/dL (6.4-8.2)
[2021-02-11 04:26] LABS: BILIRUBIN Negative (Negative); BLOOD Negative (Negative); CLARITY Clear (Clear); COLOR Yellow (Yellow); GLUCOSE Negative (Negative); KETONE Negative (Negative); LEUKO ESTERASE Negative (Negative); NITRITE Negative (Negative); PH 5.5 (4.5-8.0); UROBILINOGEN 0.2 E.U./dl (0.0-1.0)
[2021-02-11 04:34] LABS: BACTERIA TRACE; WBC 0-2 wbc/hpf (0-5)
== END 2021-02-11 06:05 | disposition home or self-care (01) ==
LOC: ED 01:59
PROVIDERS: Emergency Medicine
DX: K50.90 Crohn's disease, unspecified, without complications (principal); Z87.891 Personal history of nicotine dependence; Z90.49 Acquired absence of other specified parts of digestive tract; Z98.890 Other specified postprocedural states; Z86.718 Personal history of other venous thrombosis and embolism; Z79.899 Other long term (current) drug therapy; Z88.5 Allergy status to narcotic agent; Z88.8 Allergy status to other drugs, medicaments and biological substances

== ENCOUNTER 2021-03-16 14:01 | Emergency (ER) | payer OTHER ==
[2021-03-16 15:06] LABS: BASO % 0.5 % (0.0-1.0); EOS # 0.1 10*3/uL (0.0-0.4); EOS % 0.8 % (1.0-4.0); HEMATOCRIT 34.9 % (37.0-47.0); LYMPH % 22.9 % (27.0-41.0); MEAN CELL VOLUME 84.7 fl (81.0-99.0); MEAN CORPUSCULAR HGB 25.5 pg (27.0-31.0); MEAN CORPUSCULAR HGB CONC 30.1 g/dl (33.0-37.0); MONO # 0.6 10*3/uL (0.1-1.0); MONO % 6.8 % (3.0-9.0); NEUT % 68.8 % (47.0-73.0); PLATELET COUNT AUTOMATED 477 10*3/uL (130-400); RED BLOOD COUNT 4.12 10*6/uL (4.10-5.10); RED CELL DISTRI WIDTH 15.1 % (0-14.5); WHITE BLOOD COUNT 8.7 10*3/uL (4.8-10.8)
[2021-03-16 15:25] LABS: ALBUMIN 3.2 gm/dl (3.1-4.5); ALKALINE PHOSPHATASE 103 U/L (45-117); BUN 10 mg/dl (7-24); CHLORIDE 109 mmol/L (98-107); LIPASE 130 U/L (73-393); POTASSIUM 4.2 mmol/L (3.5-5.1); SGOT/AST 10 IU/L (3-35); SGPT/ALT 20 U/L (12-78); SODIUM 136 mmol/L (136-145); TOTAL PROTEIN 7.1 gm/dL (6.4-8.2)
[2021-03-16 16:07] LABS: BILIRUBIN Negative (Negative); BLOOD Negative (Negative); CLARITY Clear (Clear); COLOR Yellow (Yellow); GLUCOSE Negative (Negative); KETONE Negative (Negative); LEUKO ESTERASE Negative (Negative); NITRITE Negative (Negative); PH 5.5 (4.5-8.0); SPECIFIC GRAVITY <= 1.005 (1.001-1.030); UROBILINOGEN 0.2 E.U./dl (0.0-1.0)
[2021-03-16 16:17] LABS: BACTERIA TRACE; EPITHELIAL CELLS 31-40; RBC 0-2 rbc/hpf (0-2); WBC 0-2 wbc/hpf (0-5)
[2021-03-16] MEDS ORDERED: PREDNISONE50 MG PO (18:47)
== END 2021-03-16 19:07 | disposition home or self-care (01) ==
LOC: ED 14:01
PROVIDERS: Emergency Medicine
DX: K50.90 Crohn's disease, unspecified, without complications (principal); Z88.8 Allergy status to other drugs, medicaments and biological substances; Z79.899 Other long term (current) drug therapy; Z98.890 Other specified postprocedural states; Z90.49 Acquired absence of other specified parts of digestive tract; Z87.891 Personal history of nicotine dependence

== ENCOUNTER 2021-03-26 22:13 | Emergency (ER) | payer OTHER ==
[~2021-03-26] VITALS: Wt 54.4 kg
[2021-03-26 23:22] LABS: BASO % 0.4 % (0.0-1.0); EOS # 0.1 10*3/uL (0.0-0.4); HEMATOCRIT 33.8 % (37.0-47.0); LYMPH # 1.3 10*3/uL (1.3-4.4); LYMPH % 12.6 % (27.0-41.0); MEAN CELL VOLUME 84.3 fl (81.0-99.0); MEAN CORPUSCULAR HGB 25.7 pg (27.0-31.0); MEAN CORPUSCULAR HGB CONC 30.5 g/dl (33.0-37.0); MEAN PLATELET VOLUME 8.8 fl (9.6-12.3); MONO # 0.4 10*3/uL (0.1-1.0); MONO % 4.4 % (3.0-9.0); NEUT # 8.1 10*3/uL (2.3-7.9); NEUT % 81.4 % (47.0-73.0); PLATELET COUNT AUTOMATED 519 10*3/uL (130-400); RED BLOOD COUNT 4.01 10*6/uL (4.10-5.10); RED CELL DISTRI WIDTH 15.1 % (0-14.5)
[2021-03-26 23:40] LABS: ALBUMIN 3.2 gm/dl (3.1-4.5); ALKALINE PHOSPHATASE 96 U/L (45-117); BUN 7 mg/dl (7-24); CHLORIDE 107 mmol/L (98-107); CREATININE 0.73 mg/dL (0.55-1.02); LIPASE 98 U/L (73-393); SGOT/AST 12 IU/L (3-35); SGPT/ALT 19 U/L (12-78); SODIUM 137 mmol/L (136-145); TOTAL PROTEIN 7.2 gm/dL (6.4-8.2)
== END 2021-03-27 00:07 | disposition left against medical advice (07) ==
LOC: ED 22:13
PROVIDERS: Emergency Medicine
DX: K50.90 Crohn's disease, unspecified, without complications (principal); R11.10 Vomiting, unspecified; R19.7 Diarrhea, unspecified; G43.909 Migraine, unspecified, not intractable, without status migrainosus; M81.0 Age-related osteoporosis without current pathological fracture; Z88.8 Allergy status to other drugs, medicaments and biological substances; Z88.5 Allergy status to narcotic agent; Z79.899 Other long term (current) drug therapy; Z79.2 Long term (current) use of antibiotics; Z86.718 Personal history of other venous thrombosis and embolism; Z86.14 Personal history of Methicillin resistant Staphylococcus aureus infection; Z86.711 Personal history of pulmonary embolism; Z90.49 Acquired absence of other specified parts of digestive tract; Z87.891 Personal history of nicotine dependence

== ENCOUNTER 2021-04-17 10:58 | Emergency (ER) | payer OTHER ==
[~2021-04-17] VITALS: Ht 154.9 cm; Wt 54.4 kg
[2021-04-17 11:49] LABS: BASO % 0.3 % (0.0-1.0); EOS # 0.1 10*3/uL (0.0-0.4); EOS % 1.1 % (1.0-4.0); HEMATOCRIT 39.4 % (37.0-47.0); LYMPH # 1.6 10*3/uL (1.3-4.4); LYMPH % 17.5 % (27.0-41.0); MEAN CELL VOLUME 86.8 fl (81.0-99.0); MEAN CORPUSCULAR HGB 25.8 pg (27.0-31.0); MEAN CORPUSCULAR HGB CONC 29.7 g/dl (33.0-37.0); MEAN PLATELET VOLUME 9.3 fl (9.6-12.3); MONO # 0.7 10*3/uL (0.1-1.0); MONO % 7.2 % (3.0-9.0); NEUT # 6.6 10*3/uL (2.3-7.9); NEUT % 73.2 % (47.0-73.0); PLATELET COUNT AUTOMATED 475 10*3/uL (130-400); RED BLOOD COUNT 4.54 10*6/uL (4.10-5.10); RED CELL DISTRI WIDTH 17.2 % (0-14.5)
[2021-04-17 12:05] LABS: ALBUMIN 3.3 gm/dl (3.1-4.5); ALKALINE PHOSPHATASE 92 U/L (45-117); BUN 12 mg/dl (7-24); CHLORIDE 105 mmol/L (98-107); CREATININE 0.83 mg/dL (0.55-1.02); LIPASE 214 U/L (73-393); POTASSIUM 4.4 mmol/L (3.5-5.1); SGOT/AST 9 IU/L (3-35); SGPT/ALT 21 U/L (12-78); SODIUM 135 mmol/L (136-145); TOTAL PROTEIN 7.2 gm/dL (6.4-8.2)
== END 2021-04-17 13:35 | disposition home or self-care (01) ==
LOC: ED 10:58
PROVIDERS: Physician Assistant
DX: G89.29 Other chronic pain (principal); R10.84 Generalized abdominal pain; R11.2 Nausea with vomiting, unspecified; R19.7 Diarrhea, unspecified; Z88.8 Allergy status to other drugs, medicaments and biological substances; Z79.899 Other long term (current) drug therapy; Z79.2 Long term (current) use of antibiotics; Z90.49 Acquired absence of other specified parts of digestive tract; Z87.891 Personal history of nicotine dependence

== ENCOUNTER 2022-07-01 19:24 | Emergency (ER) | payer OTHER ==
[~2022-07-01] VITALS: Ht 152.4 cm; Wt 54.4 kg
[2022-07-01 21:45] LABS: BASO # 0.1 10*3/uL (0.0-0.1); BASO % 0.9 % (0.0-1.0); EOS # 0.1 10*3/uL (0.0-0.4); EOS % 2.3 % (1.0-4.0); HEMATOCRIT 39.2 % (37.0-47.0); LYMPH # 1.7 10*3/uL (1.3-4.4); LYMPH % 32.6 % (27.0-41.0); MEAN CELL VOLUME 86.7 fl (81.0-99.0); MEAN CORPUSCULAR HGB 28.8 pg (27.0-31.0); MEAN CORPUSCULAR HGB CONC 33.2 g/dl (33.0-37.0); MEAN PLATELET VOLUME 8.9 fl (9.6-12.3); MONO # 0.9 10*3/uL (0.1-1.0); MONO % 16.3 % (3.0-9.0); NEUT # 2.5 10*3/uL (2.3-7.9); NEUT % 47.7 % (47.0-73.0); PLATELET COUNT AUTOMATED 303 10*3/uL (130-400); RED BLOOD COUNT 4.52 10*6/uL (4.10-5.10); RED CELL DISTRI WIDTH 12.5 % (0-14.5); WHITE BLOOD COUNT 5.3 10*3/uL (4.8-10.8)
[2022-07-01 22:01] LABS: ALKALINE PHOSPHATASE 104 U/L (45-117); BUN 12 mg/dl (7-24); CHLORIDE 108 mmol/L (98-107); CREATININE 0.79 mg/dL (0.55-1.02); LIPASE 334 U/L (73-393); POTASSIUM 4.1 mmol/L (3.5-5.1); SGOT/AST 18 IU/L (3-35); SGPT/ALT 22 U/L (12-78); SODIUM 139 mmol/L (136-145); TOTAL PROTEIN 6.4 gm/dL (6.4-8.2)
[2022-07-01 22:39] LABS: BILIRUBIN Negative (Negative); BLOOD Negative (Negative); CLARITY Clear (Clear); COLOR Yellow (Yellow); GLUCOSE Negative (Negative); KETONE Negative (Negative); LEUKO ESTERASE Negative (Negative); NITRITE Negative (Negative); PH 5.5 (4.5-8.0); UROBILINOGEN 0.2 E.U./dl (0.0-1.0)
[2022-07-01 22:51] LABS: BACTERIA 1+; MUCOUS 1+
[2022-07-01] MEDS ORDERED: CITROMA296 ML PO (22:55)
== END 2022-07-01 23:31 | disposition home or self-care (01) ==
LOC: ED 19:24
PROVIDERS: Physician Assistant
DX: K59.00 Constipation, unspecified (principal); Z88.8 Allergy status to other drugs, medicaments and biological substances; Z79.899 Other long term (current) drug therapy; Z90.49 Acquired absence of other specified parts of digestive tract; Z98.890 Other specified postprocedural states; Z87.891 Personal history of nicotine dependence

== ENCOUNTER 2022-07-27 23:25 | Emergency (ER) | payer OTHER ==
[~2022-07-27] VITALS: Ht 157.4 cm; Wt 54.4 kg
[~2022-07-27 23:25] MED LIST changes: +CITROMA296 ML PO
[2022-07-28 02:17] LABS: ALKALINE PHOSPHATASE 104 U/L (45-117); BUN 8 mg/dl (7-24); CHLORIDE 108 mmol/L (98-107); CREATININE 0.72 mg/dL (0.55-1.02); POTASSIUM 4.4 mmol/L (3.5-5.1); SGOT/AST 19 IU/L (3-35); SGPT/ALT 40 U/L (12-78); SODIUM 136 mmol/L (136-145); TOTAL PROTEIN 6.5 gm/dL (6.4-8.2)
[2022-07-28 02:49] LABS: MANUAL DIFF REFLEX YES; MEAN CELL VOLUME 91.9 fl (81.0-99.0); MEAN CORPUSCULAR HGB 28.7 pg (27.0-31.0); MEAN CORPUSCULAR HGB CONC 31.2 g/dl (33.0-37.0); MEAN PLATELET VOLUME 9.5 fl (9.6-12.3); PLATELET COUNT AUTOMATED 291 10*3/uL (130-400); RED BLOOD COUNT 4.46 10*6/uL (4.10-5.10); RED CELL DISTRI WIDTH 13.3 % (0-14.5); WHITE BLOOD COUNT 8.8 10*3/uL (4.8-10.8)
[2022-07-28 03:10] LABS: PLATELET SUFFICIENCY NORMAL (NORMAL); TOTAL CELLS COUNTED 100 #CELLS
== END 2022-07-28 02:42 | disposition left against medical advice (07) ==
LOC: ED 23:25
PROVIDERS: Emergency Medicine
DX: K50.90 Crohn's disease, unspecified, without complications (principal); R19.7 Diarrhea, unspecified; R11.2 Nausea with vomiting, unspecified; G43.909 Migraine, unspecified, not intractable, without status migrainosus; M81.0 Age-related osteoporosis without current pathological fracture; E44.1 Mild protein-calorie malnutrition; Z88.8 Allergy status to other drugs, medicaments and biological substances; Z88.5 Allergy status to narcotic agent; Z79.899 Other long term (current) drug therapy; Z86.718 Personal history of other venous thrombosis and embolism; Z90.49 Acquired absence of other specified parts of digestive tract; Z87.891 Personal history of nicotine dependence